=== PATIENT | male | born 1965 | race Caucasian/White ===

== ENCOUNTER → 2019-07-30 15:00 | Outpatient (BNVA) | payer MEDICARE, MEDICAID, SELFPAY | PROVIDERS: Visit Provider Nurse Practitioner Psychiatric/Mental Health | DX: F33.1 Major depressive disorder, recurrent, moderate (principal); F43.12 Post-traumatic stress disorder, chronic; S06.9X9A Unspecified intracranial injury with loss of consciousness of unspecified duration, initial encounter; Z79.899 Other long term (current) drug therapy | CPT/HCPCS: 80307; 99214 ==

== ENCOUNTER → 2020-03-03 08:07 | Outpatient (BNVA) | payer MEDICARE, MEDICAID, SELFPAY | PROVIDERS: Visit Provider Nurse Practitioner Psychiatric/Mental Health | DX: F33.1 Major depressive disorder, recurrent, moderate (principal); F43.12 Post-traumatic stress disorder, chronic; S06.9X9A Unspecified intracranial injury with loss of consciousness of unspecified duration, initial encounter | CPT/HCPCS: 99213 ==

== ENCOUNTER → 2020-03-27 10:26 | Outpatient (BNVA) | payer MEDICARE, MEDICAID, SELFPAY | PROVIDERS: Visit Provider Nurse Practitioner Psychiatric/Mental Health | DX: F43.12 Post-traumatic stress disorder, chronic (principal); F33.1 Major depressive disorder, recurrent, moderate; S06.9X9A Unspecified intracranial injury with loss of consciousness of unspecified duration, initial encounter; F41.1 Generalized anxiety disorder; Z79.899 Other long term (current) drug therapy | CPT/HCPCS: 80306; 99212 ==

== ENCOUNTER → 2020-04-23 13:26 | Outpatient (BNVA) | payer MEDICARE, MEDICAID, SELFPAY | PROVIDERS: Visit Provider Specialist | DX: M25.561 Pain in right knee (principal); M17.11 Unilateral primary osteoarthritis, right knee; M85.861 Other specified disorders of bone density and structure, right lower leg | CPT/HCPCS: 73560; 73565 ==

== ENCOUNTER → 2020-04-24 08:42 | Outpatient (BNVA) | payer MEDICARE, MEDICAID, SELFPAY | PROVIDERS: Visit Provider Nurse Practitioner Psychiatric/Mental Health | DX: F33.1 Major depressive disorder, recurrent, moderate (principal); F43.12 Post-traumatic stress disorder, chronic; S06.9X9A Unspecified intracranial injury with loss of consciousness of unspecified duration, initial encounter; F33.2 Major depressive disorder, recurrent severe without psychotic features; F41.1 Generalized anxiety disorder | CPT/HCPCS: 99212 ==

== ENCOUNTER 2020-05-08 20:00 | Outpatient (CLI) | payer MEDICARE, MEDICAID, SELFPAY | END 2020-05-08 20:01 | disposition home or self-care (01) | LOC: SLEEP 05-09 09:26 | PROVIDERS: Visit Provider Internal Medicine | DX: G47.30 Sleep apnea, unspecified (principal) | CPT/HCPCS: 95811 ==

== ENCOUNTER → 2020-05-22 08:13 | Outpatient (BNVA) | payer MEDICARE, MEDICAID, SELFPAY | PROVIDERS: Visit Provider Nurse Practitioner Psychiatric/Mental Health | DX: F33.1 Major depressive disorder, recurrent, moderate (principal); F43.12 Post-traumatic stress disorder, chronic; S06.9X9A Unspecified intracranial injury with loss of consciousness of unspecified duration, initial encounter | CPT/HCPCS: 99212 ==

== ENCOUNTER → 2020-06-16 08:45 | Outpatient (BNVA) | payer MEDICARE, MEDICAID, SELFPAY | PROVIDERS: Visit Provider Nurse Practitioner Psychiatric/Mental Health | DX: F43.12 Post-traumatic stress disorder, chronic (principal); F32.2 Major depressive disorder, single episode, severe without psychotic features; S06.9X9A Unspecified intracranial injury with loss of consciousness of unspecified duration, initial encounter | CPT/HCPCS: 99212 ==

== ENCOUNTER 2020-06-16 14:41 | Inpatient (IN) | payer MEDICARE, MEDICAID, SELFPAY ==
[2020-06-16 14:50] VITALS: BP 165/95; PULSE 121; RESP 22; TEMP 36.4; O2SAT 96; BMI 26.1
--- NOTE | 2020-06-16 15:04 | ED_ITS ---
HPI - Psych General: Chief Complaint: Psychiatric Symptoms Stated Complaint: SUICIDAL/ SENT FROM [facility] Time Seen by Provider: 06/16/20 14:50 Source: patient Mode of arrival: ambulatory Limitations: no limitations History of Present Illness: HPI Narrative: Kian 54-year-old male states been having increased depression and feeling worthless. He states he was recently addicted and has been having suicidal thoughts. He states that he told them that [facility] today that he want to kill himself [place] here. He states he has a plan to kill himself by overdosing. He denies any worsening or improving factors. complaint: suicidal ideation and feels depressed Onset (ago): day(s) Duration: constant History of same: Yes Relieving factors: none Exacerbating factors: none Associated symptoms: Reports depression and suicidal ideation Review of Systems Const: Denies: fever(s), chills, body aches or change in appetite Eyes: Denies: blurry vision or eye discomfort ENMT: Denies: throat pain or dental pain Card: Denies: chest pain Resp: Denies: dyspnea GI: Denies: abdominal pain, nausea, vomiting or diarrhea : Denies: dysuria Musc: Denies: neck pain or back pain Skin/Breast: Denies: rash Neuro: Denies: headache(s) Psych: Reports: depression and suicidal ideation Cam/Lymph: Denies: easy bruising All/Imm: Denies: urticaria PFSH ED PFSH: Social History Smoking and tobacco status: current every day smoker cigarettes Years cigarettes smoked: 36 Quit status (tobacco): considering quitting Second hand smoke exposure: Yes Physical Exam Const: COMMON NORMALS: no acute distress, patient oriented x3 and healthy appearing HENMT: COMMON NORMALS: normocephalic and atraumatic HEAD & SCALP: normocephalic and atraumatic Eye: COMMON NORMALS: Equal, round and reactive pupils present and EOMs intact bilaterally PUPIL: Yes Equal, round and reactive pupils present Neck/C-Spine: COMMON NORMALS: full ROM and supple Chest: COMMONS NORMALS: normal inspection of the chest and normal palpation of entire chest wall Resp: COMMON NORMALS: normal respiratory effort, No retractions, No use of accessory muscles and clear to auscultation bilaterally AUSCULTATION: clear to auscultation bilaterally Cardio: COMMON NORMALS: regular rate, regular rhythm and No murmurs present (Cardio) RATE: regular rate RHYTHM: regular rhythm GI: COMMON NORMALS: Normal to inspection, nondistended, normoactive bowel sounds present, Soft to palpation, non-tender and no masses PALPATION: Yes Soft to palpation Extremity: COMMON NORMALS: normal to inspection and full ROM Neuro: COMMON NORMALS: patient oriented x3, moves all extremities and no focal motor deficits Psych: COMMON NORMALS: mental status grossly normal, Normal thought process present and cooperative MOOD & AFFECT: Yes depressed mood THOUGHT PROCESS: Normal thought process present THOUGHT CONTENT: Yes Suicidality present Skin: COMMON NORMALS: no rashes or lesions noted and no wounds GENERAL SKIN EXAM: no rashes or lesions noted MDM - Psych MDM Narrative: Medical decision making narrative: Kian presents here with suicidal ideations. Patient placed under 96-hour hold. He is medically cleared and I spoke to Dr. Olsen and will admit the psychiatric unit. He has been stable while here. Lab Data: Labs: Lab Results 06/16/20 06/16/20 Range/Units 15:12 15:12 WBC 8.8 (4.0-10.0) 10^3/ uL RBC 5.18 (4.1-5.3) 10^6/u L Hgb 17.4 H (11.7-16.6) g/dL Hct 49.4 (42.0-52.0) % MCV 95.4 H (80-94) fL MCH 33.6 (28.0-34.0) pg MCHC 35.2 (30.0-36.0) g/dL RDW 13.1 (12.1-15.1) % Plt Count 174 (130-400) 10^3/c mm MPV 10.3 (7.4-10.4) fL Neut % (Auto) 64.6 % Lymph % (Auto) 22.0 % Evangeline % (Auto) 11.4 % Eos % (Auto) 1.4 % Baso % (Auto) 0.3 % Neut # (Auto) 5.66 (1.8-7.7) 10^3/u L Lymph # (Auto) 1.9 (0.8-4.8) 10^3/u L Evangeline # (Auto) 1.0 H (0.2-0.9) 10^3/u L Eos # (Auto) 0.1 (0.0-0.8) 10^3/u L Baso # (Auto) 0.0 (0.0-0.1) 10^3/u L Nucleated RBC % (a uto) 0 % Nucleated RBCs # 0.0 /100WBC Sodium 133 L (136-145) mmol/L Potassium 3.7 (3.5-5.1) mmol/L Chloride 95 L (98-107) mmol/L Carbon Dioxide 21 L (22-29) mmol/L Anion Gap 20.7 H (5-19) BUN 9 (6-20) mg/dL Creatinine 0.9 (0.7-1.2) mg/dL GFR Calculation 88.6 L (90-130) mL/min Glucose 162 H (65-115) mg/dL Calculated Osmolal ity 278 L (285-295) mOsm/k g Calcium 10.0 (8.5-10.5) mg/dL Total Bilirubin 0.8 (0.15-1.2) mg/dL AST 32 (0-40) U/L ALT 37 (0-41) U/L Alkaline Phosphata se 93 (40-130) IU/L Total Protein 7.6 (6.6-8.7) g/dL Albumin 4.4 (3.5-5.2) g/dL Globulin 3.2 (1.3-4.6) g/dL Salicylates < 0.3 L (3-10) mg/dL Acetaminophen < 5.0 L (10-30) ug/mL Ethyl Alcohol < 10 (0-10) mg/dL Discharge Plan Discharge Patient Disposition: Admitted As Inpatient Clinical Impression: Suicidal ideation Condition: Stable Coding Level of Care Code ED Project Superintendent for Joellen Fwd Exam Comprehensive
[2020-06-16 15:19] LABS: Basophils % 0.3 %; Eosinophils # 0.1 10^3/uL (0.0-0.8); Eosinophils % 1.4 %; Hematocrit 49.4 % (42.0-52.0); Hemoglobin 17.4 g/dL (11.7-16.6); Lymphocytes # 1.9 10^3/uL (0.8-4.8); Mean Corpuscular HGB Conc 35.2 g/dL (30.0-36.0); Mean Corpuscular Hemoglobin 33.6 pg (28.0-34.0); Mean Corpuscular Volume 95.4 fL (80-94); Mean Platelet Volume 10.3 fL (7.4-10.4); Monocytes % 11.4 %; Neutrophils # 5.66 10^3/uL (1.8-7.7); Neutrophils % 64.6 %; Nucleated Red Blood Cells % 0 %; Platelet Count 174 10^3/cmm (130-400); Red Blood Count 5.18 10^6/uL (4.1-5.3); Red Cell Distribution Width 13.1 % (12.1-15.1); White Blood Count 8.8 10^3/uL (4.0-10.0)
[2020-06-16 15:45] LABS: Alanine Aminotransferase 37 U/L (0-41); Albumin Level 4.4 g/dL (3.5-5.2); Alkaline Phosphatase 93 IU/L (40-130); Anion Gap 20.7 (5-19); Aspartate Amino Transferase 32 U/L (0-40); Blood Urea Nitrogen 9 mg/dL (6-20); Carbon Dioxide 21 mmol/L (22-29); Chloride 95 mmol/L (98-107); Globulin 3.2 g/dL (1.3-4.6); Glomerular Filtration Rate 88.6 mL/min (90-130); Glucose 162 mg/dL (65-115); Osmolality Calculated 278 mOsm/kg (285-295); Potassium 3.7 mmol/L (3.5-5.1); Sodium 133 mmol/L (136-145); Total Bilirubin 0.8 mg/dL (0.15-1.2); Total Protein 7.6 g/dL (6.6-8.7)
[2020-06-16] MEDS: LORazepam 2 mg Tablet PO (15:49)
[2020-06-16 15:50] LABS: Acetaminophen < 5.0 ug/mL (10-30); Alcohol Level < 10 mg/dL (0-10); Salicylate < 0.3 mg/dL (3-10)
[2020-06-16 16:12] LABS: Amphetamines Screen Urine Negative (Negative); Barbiturates Screen Urine Negative (Negative); Benzodiazepines Screen Urine Positive (Negative); Cocaine Screen Urine Negative (Negative); Opiate Screen Urine Negative (Negative); PCP Screen Urine Negative (Negative); THC Screen Urine Negative (Negative)
[2020-06-16 18:01] VITALS: BP 154/109; PULSE 109; RESP 18; TEMP 36.8; O2SAT 98
[2020-06-16] MEDS: nicotine 21 mg Patch 1 PATCH TRANSDERMA (18:14)
[2020-06-16] MEDS: diazePAM 5 mg Tablet PO (20:27)
[2020-06-16] MEDS: trazodone 50 mg Tablet PO (20:27)
[2020-06-16] MEDS: acetaminophen 325 mg Tablet 650 MG PO (20:32)
[2020-06-16 20:46] VITALS: PULSE 114; RESP 16; O2SAT 99
[2020-06-16] MEDS: pantoprazole DR 40 mg Tablet PO (21:00)
[2020-06-16 21:28] VITALS: BP 133/93; PULSE 118; RESP 16; TEMP 36.3; O2SAT 98
--- NOTE | 2020-06-16 21:42 | PC.NURSE ---
AT NURSES STATION, WAITING ON MEDS, TALKATIVE, SAYS BACK HAS BEEN HURTING, TOOK TYLENOL FOR PAIN.
[2020-06-16] MEDS: lamoTRIgine 25 mg Tablet 50 MG PO (21:53)
--- NOTE | 2020-06-17 00:21 | PC.NURSE ---
NICOTINE PATCH REMOVED AT 2100
--- NOTE | 2020-06-17 00:22 | PC.NURSE ---
PRNS @2026 PT RECEIVED 650MG PO TYLENOL FOR BACK PAIN RATED A 6 ON 1-10 PAIN SCALE tRAZODONE 50MG PO FOR SLEEP VALIUM 5MG PO FOR ANXIETY @2099 PT IS RESTING IN HIS ROOM WITHOUT ANY VISIBLE S/S DISTRESS. pT REPORTS DECREASE IN PAIN LEVEL TO A 3 FROM 6. wILL CONTINUE TO MONITOR THIS PATIENT.
[2020-06-17 06:00] VITALS: BP 108/76; PULSE 71; RESP 14; TEMP 36.3; O2SAT 95
--- NOTE | 2020-06-17 07:56 | PC.NURSE ---
pt offered Flu vaccine, pt stated he already received it this year.
[2020-06-17] MEDS: lisinopril 20 mg Tablet PO (08:17)
[2020-06-17] MEDS: fluticasone nasal spray 16gm Btl 2 SPRAY INTRANASAL ×2 (08:17→21:59)
[2020-06-17 09:20] VITALS: PULSE 71; RESP 16; O2SAT 95
[2020-06-17] MEDS: nicotine 21 mg Patch 1 PATCH TRANSDERMA (11:08)
[2020-06-17] MEDS: diazePAM 5 mg Tablet PO ×2 (12:44→20:22)
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
[2020-06-17 14:00] VITALS: BP 145/103; PULSE 96; RESP 18; TEMP 36.8; O2SAT 95
[2020-06-17] MEDS: atorvastatin 40 mg Tablet 80 MG PO (15:59)
[2020-06-17] MEDS: acetaminophen 325 mg Tablet 650 MG PO ×2 (15:59→20:22)
[2020-06-17] MEDS: pneumococcal (23 valent) SDV 0.5 mL IM (20:25)
--- NOTE | 2020-06-17 20:35 | PC.NURSE ---
TYLENOL PAIN RATED 6 ON 1-10 WILL CONTINUE TO MONITOR
--- NOTE | 2020-06-17 20:35 | PC.NURSE ---
FLU VACCINATION fLUVAX GIVEN IM LEFT DELTOID MUSCLE LOT [id number] EXP 12/31/20
[2020-06-17 20:36] VITALS: BP 128/81; PULSE 87; RESP 18; TEMP 36.6; O2SAT 93
--- NOTE | 2020-06-17 20:37 | PC.NURSE ---
pNEUMONIA VACCINATION PNEUMOVAX GIVEN RIGHT DELTOID IM EXP 04/05/2021 LOT #[id number]
[2020-06-17 21:58] VITALS: PULSE 94; RESP 16; O2SAT 98
[2020-06-17] MEDS: pantoprazole DR 40 mg Tablet PO (21:59)
[2020-06-17] MEDS: lamoTRIgine 25 mg Tablet 50 MG PO (21:59)
[2020-06-17] MEDS: trazodone 50 mg Tablet PO (21:59)
[2020-06-17] MEDS: nicotine 2 mg Gum BUCCAL (21:59)
[2020-06-18 06:00] VITALS: BP 125/90; PULSE 99; RESP 18; TEMP 36.8; O2SAT 98
[2020-06-18] MEDS: nicotine 21 mg Patch 1 PATCH TRANSDERMA (06:00)
[2020-06-18 07:37] VITALS: PULSE 90; RESP 16; O2SAT 97
[2020-06-18] MEDS: lisinopril 20 mg Tablet PO (09:07)
[2020-06-18] MEDS: fluticasone nasal spray 16gm Btl 2 SPRAY INTRANASAL (09:07)
[2020-06-18] MEDS: diazePAM 5 mg Tablet PO (10:45)
--- NOTE | 2020-06-18 10:45 | PC.NURSE ---
PRN VALIUM 5 MG GIVEN PO PER PT C/O ANXIETY. PT UP AT NURSES STATION, LAUGHING WITH STAFF. NO OUTWARD S/S OF ANXIETY NOTED.
[2020-06-18 11:49] VITALS: PULSE 90; RESP 16; O2SAT 97
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
--- NOTE | 2020-06-18 16:42 | PC.RESP ---
Smoking Cessation information sent to patient.
== END 2020-06-18 13:22 | disposition home or self-care (01) | DRG 885 ==
LOC: ER 15:10 → NP 06-17 06:18
PROVIDERS: Admitting Provider Psychiatry & Neurology Psychiatry; Emergency Provider Emergency Medicine; PCP Internal Medicine; Visit Provider Psychiatry & Neurology Psychiatry
DX: F33.1 Major depressive disorder, recurrent, moderate (principal); R45.851 Suicidal ideations; F43.12 Post-traumatic stress disorder, chronic; Z87.820 Personal history of traumatic brain injury; F17.210 Nicotine dependence, cigarettes, uncomplicated; J44.9 Chronic obstructive pulmonary disease, unspecified; I10 Essential (primary) hypertension
CPT/HCPCS: 12345; 80053; 80306; 80307; 85025; 90471; 90686; 90732; 94640; 99212; 99284

== ENCOUNTER → 2020-07-01 07:57 | Outpatient (BNVA) | payer MEDICARE, MEDICAID, SELFPAY | PROVIDERS: PCP Internal Medicine; Visit Provider Nurse Practitioner Psychiatric/Mental Health | DX: F43.12 Post-traumatic stress disorder, chronic (principal); S06.9X9A Unspecified intracranial injury with loss of consciousness of unspecified duration, initial encounter; F32.2 Major depressive disorder, single episode, severe without psychotic features; F17.200 Nicotine dependence, unspecified, uncomplicated; F33.1 Major depressive disorder, recurrent, moderate | CPT/HCPCS: 99213 ==

== ENCOUNTER → 2020-07-03 11:14 | Outpatient (BNVA) | payer OTHER, SELFPAY | PROVIDERS: PCP Internal Medicine; Visit Provider Nurse Practitioner Psychiatric/Mental Health | DX: F43.12 Post-traumatic stress disorder, chronic (principal) | CPT/HCPCS: 80061; 83036 ==

== ENCOUNTER → 2020-07-29 10:00 | Outpatient (BNVA) | payer MEDICARE, MEDICAID, SELFPAY | PROVIDERS: PCP Internal Medicine; Visit Provider Nurse Practitioner Psychiatric/Mental Health | DX: F43.12 Post-traumatic stress disorder, chronic (principal); F32.2 Major depressive disorder, single episode, severe without psychotic features; F33.1 Major depressive disorder, recurrent, moderate; F17.200 Nicotine dependence, unspecified, uncomplicated; S06.9X9A Unspecified intracranial injury with loss of consciousness of unspecified duration, initial encounter | CPT/HCPCS: 80061; 99214 ==

== ENCOUNTER → 2020-08-05 09:15 | Outpatient (BNVA) | payer MEDICARE, MEDICAID, SELFPAY ==
[2020-07-31 13:19] VITALS: BP 138/103; BMI 25.4
== END ==
PROVIDERS: PCP Internal Medicine; Visit Provider Orthopaedic Surgery
DX: M54.9 Dorsalgia, unspecified (principal); S22.31XD Fracture of one rib, right side, subsequent encounter for fracture with routine healing; X58.XXXD Exposure to other specified factors, subsequent encounter
CPT/HCPCS: 72114

== ENCOUNTER 2020-08-28 17:09 | Outpatient (CLI) | payer MEDICARE, MEDICAID, SELFPAY ==
[2020-07-31 13:19] VITALS: BP 138/103; BMI 25.4
--- NOTE | 2020-08-28 17:55 | MR_ITS ---
WS: [id number] MRI LUMBAR SPINE NONCONTRAST TECHNIQUE: Sagittal T1, T2 and STIR imaging. Axial T1 and T2 imaging. CLINICAL INFORMATION: M48.062 - Spinal stenosis, lumbar region with neurogenic claudication COMPARISON: None. FINDINGS: Prior postoperative changes in the cervical spine with anterior cervical fusion C5-6. Mild disc bulgi ng C3-C4 and C4-C5. Slight retrolisthesis C3 on C4. This is seen on the manager business planning imaging. Mild lumbar curve. No acute compression. No high-grade central canal stenosis. Prior left hemilaminec fer L4-5. L1-L2: No significant disc bulging. Mild facet arthropathy. Spinal canal and foramen are patent. L2-L3: Mild annular bulging with slight effacement of ventral thecal sac. Narrowing of the subarticul ar recess bilaterally. Moderate facet arthropathy. Mild left foraminal narrowing. L3-L4: Mild annular bulging with osteophytic ridging. Moderate facet arthropathy. Slight narrowing of the subarticular recess bilaterally. Mild left foraminal narrowing. L4-L5: Mild disc bulging in combination with moderate facet arthropathy results in mild residual cent ral canal stenosis. Slight impingement traversing L5 nerve roots bilaterally. Moderate left foraminal narrowing with contact of the exiting left L4 nerve root is progressed from previous. L5-S1: No significant disc bulging. Moderate facet arthropathy. Spinal canal and foramen are patent. Visualized pelvic bony structures: Normal. Paravertebral soft tissues: Normal. MR/MR lumbar spine wo con* [id number] IMPRESSION: 1. Mild lumbar curve. No acute compression. No high-grade central canal stenos is. 2. Mild residual central canal stenosis L4-5 due to disc bulging with moderate facet arthropathy. Slight impingement traversing L5 nerve roots bilaterally. T his is stable since 2018. 3. Mild to moderate left L4-5 foraminal narrowing with contact of the exiting left L4 nerve root. Recommend correlation left L4 nerve root symptoms. This is progressed since 2018. 4. Mild left L2-3 and L3-4 foraminal narrowing. 5. Moderate facet arthropathy L3-L4 and L4-L5. 6. Evidence of prior hemilaminectomy L4-5. Previously described small seroma h as resolved.
== END 2020-08-28 17:10 | disposition home or self-care (01) ==
LOC: RADSHAW 17:16
PROVIDERS: PCP Internal Medicine; Visit Provider Orthopaedic Surgery
DX: M48.062 Spinal stenosis, lumbar region with neurogenic claudication (principal); M96.1 Postlaminectomy syndrome, not elsewhere classified; M47.816 Spondylosis without myelopathy or radiculopathy, lumbar region; M48.061 Spinal stenosis, lumbar region without neurogenic claudication
CPT/HCPCS: 72148

== ENCOUNTER → 2020-09-25 12:45 | Outpatient (BNVA) | payer MEDICARE, MEDICAID, SELFPAY ==
[2020-07-31 13:19] VITALS: BP 138/103; BMI 25.4
== END ==
PROVIDERS: PCP Internal Medicine; Visit Provider Orthopaedic Surgery
DX: M48.062 Spinal stenosis, lumbar region with neurogenic claudication (principal); Z20.822 Contact with and (suspected) exposure to COVID-19
CPT/HCPCS: 87635

== ENCOUNTER 2020-09-29 08:19 | Day surgery (SDC) | payer MEDICARE, MEDICAID, SELFPAY ==
[2020-07-31 13:19] VITALS: BP 138/103; BMI 25.4
[2020-09-26 12:59] VITALS: BMI 23.2
[2020-09-29 08:41] VITALS: BP 158/110; PULSE 78; RESP 18; TEMP 36.2; O2SAT 97
[2020-09-29] MEDS: sodium chloride 0.9% 1,000 ML 30 ML IV (08:55)
--- NOTE | 2020-09-29 09:16 | ANES.PREANE2 ---
Pre-Anesthetic Assessment Pre-Anesthetic Assessment: Height/Weight: Height 1.78 m Weight 73.482 kg Temp Pulse Resp BP Pulse Ox 97.1 F L 78 18 158/110 97 09/29/20 08:41 09/29/20 08:41 09/29/20 08:41 09/29/20 08:41 09/29/20 08:41 Preop Diagnosis: lumbar stenosis with radiculopathy Proposed Procedure: Operation Date: 09/29/20 09:55 Proposed Procedures p Right L4-L5 L5-S1 Revision [id number] M48.062(Right) - Ayush Peterson DO Familial anesthetic complications: None Was Beta Papa taken within 24 hours: N/A Was Clonidine taken within 24 hours: N/A Last intake: Intake Last Liquid Date 09/28/20 Last Liquid Time 23:00 Last Solid Date 09/28/20 Last Solid Time 23:00 Social: Social History: Tobacco and No alcohol Exam: Pre-Anes Outpt Exam: alert, oriented x 3, clear to auscultation bilaterally and regular rate & rhythm Airway: Cervical ROM: WNL MP: 4 Dentition: Chipped Pulmonary: Pulmonary: COPD CV/HEM: CV/HEM: HTN GI: GI: GERD Metabolic: Metabolic: Hyperlipidemia and Morbid obesity Anesthetic Plan: ASA status: 2 Anesthesia: General Risk of > 500 ml blood loss (7ml/kg in children): No PFSH Anesthesia PFSH: Medical History Nicotine dependence Hasn't smoked in 1 and 1/2 days. Family History Mother Cancer Social History Smoking and tobacco status: current every day smoker cigarettes Years cigarettes smoked: 36 Quit status (tobacco): considering quitting Second hand smoke exposure: Yes Alcohol intake: former Current gender identity: Male Data Anesthesia Cardiac Studies: No Data to Display
[2020-09-29] MEDS: midazolam 1 mg/mL INJ 2 mL 2 MG IVP (10:01)
--- NOTE | 2020-09-29 10:28 | W.PM.OPSUD ---
Surgery/Procedure H&P Update DATE OF PROCEDURE: September 29, 2020 DATE H&P PERFORMED: 09/02/20 H&P UPDATE INFORMATION: I have reviewed H&P completed within last 30 days, I have examined patient prior to procedure and No changes to prior documentation PREOP DIAGNOSIS: lumbar stenosis with radiculopathy PLANNED PROCEDURE: Operation Date: 09/29/20 09:55 Proposed Procedures p Right L4-L5 L5-S1 Revision [id number] M48.062(Right) - Ayush Peterson DO
[2020-09-29 10:32] LABS: Glucose Point of Care 134 mg/dL (70-110)
--- NOTE | 2020-09-29 12:02 | SUR.PREOP ---
1154 Pt surgery cancelled due to microscope not working at this time. Pt off unit via wheelchair to be taken home by ready transport. Pt verbalized understanding that procedure will be rescheduled.
== END 2020-09-29 13:00 | disposition home or self-care (01) ==
LOC: OR 10-02 10:09
PROVIDERS: PCP Internal Medicine; Visit Provider Orthopaedic Surgery
DX: M48.061 Spinal stenosis, lumbar region without neurogenic claudication (principal); Z53.9 Procedure and treatment not carried out, unspecified reason; J44.9 Chronic obstructive pulmonary disease, unspecified; I10 Essential (primary) hypertension; K21.9 Gastro-esophageal reflux disease without esophagitis; E78.5 Hyperlipidemia, unspecified; E66.01 Morbid (severe) obesity due to excess calories; Z68.23 Body mass index [BMI] 23.0-23.9, adult; F17.210 Nicotine dependence, cigarettes, uncomplicated
CPT/HCPCS: 36416; 82962; 96374; J2250; J3010; J3490; J7030

== ENCOUNTER 2020-10-03 05:37 | Day surgery (SDC) | payer MEDICARE, MEDICAID, SELFPAY ==
[2020-07-31 13:19] VITALS: BP 138/103; BMI 25.4
[2020-10-02 10:48] VITALS: BMI 23.2
[2020-10-03] VITALS (8 sets, daily range): BP systolic 113–169; BP diastolic 79–111; PULSE 82–108; RESP 13–20; TEMP 36.4–36.7; O2SAT 94–98
--- NOTE | 2020-10-03 | SCC_ITS ---
Procedure Done: 1. Right revision L4/5 laminectomy, partial facetectomy 2. Right revison L5/S1 laminectomy, partial facetectomy 16.4 seconds of fluoroscopic guidance, for a cumulative dose of 5.79 mGy, was provided to Dr. Peterson by the radiology department. C-arm images of the lumbar spine were saved for the patient's permanent record. [facility]
--- NOTE | 2020-10-03 | XR_ITS ---
WS: [id number] Lumbar spine, C-arm fluoroscopy view of the L5 vertebral body, 10/03/2020 Clinical Data: spinal stenosis lumbar region Comparison: Lumbar spine, 08/05/2020. Findings: Visualization of the L5 vertebral body is accomplished XR/XR lumbar spine 1V port [id number] Impression: Visualization of the L5 vertebral body.
[2020-10-03] MEDS: sodium chloride 0.9% 1,000 ML 30 ML IV (06:15)
[2020-10-03 06:19] LABS: Glucose Point of Care 124 mg/dL (70-110)
--- NOTE | 2020-10-03 06:41 | PM.HP ---
Providers/Chief Complaint Primary Care Provider: Siena Silva DO Chief Complaint: Spinal stenosis lumbar region History of Present Illness Kian Morris is a 55 year old male here for evaluation of low back pain and to discuss his MRI results. He states he experiences sudden sharp pain as well as sudden weakness to his lower extremities. He states he has experienced multiple falls over the last two months related to his weakness and pain. The pain and weakness have decreased his ability to preform activates of daily living. Chief Complaint: low back pain Onset: years worse the past 2 months Duration: months Characteristics: sharp, pressure Severity: 610 Location: low back Radiating symptoms: buttocks, right lateral leg and into toes Aggravating factors: standing, bending forward alleviating factors: stretches, rest Neuro deficits: denies incontinence of bowel/bladder, saddle anesthesia. Prior tx: Left L4-L5 laminotomy/foraminotomy, with resection of intraspinal, epidural mass preformed by Dr. Foley 12/08/17. injections with pain management lasting 3 days Associated symptoms: Denies abdominal pain, chills, fever(s), nausea or vomiting Review of Systems Narrative: Denies: fever(s) or chills Card: Denies: chest pain or dyspnea on exertion Resp: Denies: dyspnea, productive cough or wheezing GI: Denies: abdominal pain, nausea or vomiting Musc: Reports: joint pain, joint swelling and limited range of motion Skin/Breast: Denies: changes in skin color or dry skin Neuro: Denies: numbness in extremities or weakness in extremities Psych: Denies: anxiety Cam/Lymph: Denies: easy bruising or easy bleeding Medications/Allergies Home Medications Medication Instructions Recorded Confirmed Last Taken Type budesonide-formoterol HFA 80 2 puff INHALATION BID@07/30/19 10/03/20 10/03/20 History mcg-4.5 mcg/actuation aerosol inhaler fluticasone propionate 50 2 spray INTRANASAL BID@ ml 07/30/19 10/03/20 10/02/20 History mcg/actuation nasal spray,suspension lisinopril 20 mg tablet 20 mg PO DAILY@09 tab 07/30/19 10/03/20 10/02/20 History omeprazole 20 mg capsule,delayed 20 mg PO BID@ PRN 07/30/19 10/03/20 10/01/20 History release atorvastatin 40 mg tablet 80 mg PO DAILY@17 tab 04/22/20 10/03/20 10/03/20 History albuterol sulfate 90 mcg/actuation 2 puff INHALATION Q6H PRN 07/03/20 10/03/20 09/26/20 History aerosol inhaler fluoxetine 40 mg capsule 40 mg PO QAM #30 cap 07/29/20 10/03/20 10/02/20 Rx lamotrigine 100 mg tablet 100 mg PO .qhs #30 tab 07/29/20 10/03/20 10/02/20 Rx trazodone 100 mg tablet 50 mg PO DAILY PRN #15 tab 07/29/20 10/03/20 10/01/20 Rx metformin 1,000 mg tablet 1,000 mg PO BID 08/05/20 10/03/20 10/02/20 History diazepam 5 mg tablet 5 mg PO TID PRN #90 tab 08/26/20 10/03/20 10/02/20 Rx DME rolling walker #1 ea 09/16/20 09/16/20 Unknown Rx DME shower chair #1 ea 09/16/20 09/16/20 Unknown Rx Allergies Allergy/AdvReac Type Severity Reaction Status Date / Time No Known Allergies Allergy Verified 10/03/20 06:02 PFSH Acute PFSH: Medical History Nicotine dependence Hasn't smoked in 1 and 1/2 days. Family History Mother Cancer Social History Smoking and tobacco status: current every day smoker cigarettes Years cigarettes smoked: 36 Quit status (tobacco): considering quitting Second hand smoke exposure: Yes Alcohol intake: former Current gender identity: Male Vitals/I&O/Wt Last Vital Signs Temp 98.1 F 10/03/20 06:03 Pulse 82 10/03/20 06:03 Resp 16 10/03/20 06:03 BP 117/93 10/03/20 06:03 Pulse Ox 97 10/03/20 06:03 Weight last 48 hrs Weight 162 lb Physical Exam Narrative: EXAM NARRATIVE: EXAM NARRATIVE: CONSTITUTIONAL: The patient is normal appearing, well groomed, cooperative and in no apparent distress. GENERAL: Patient in no acute distress. Well nourished. CARDIAC: Regular rate and rhythm. CHEST: Normal inspiratory effort, normal respiratory rate. ABDOMEN: Soft and non-tender. SKIN: Clear, warm and intact. NEURO?PSYCH: The patient is alert and oriented to person, place and time. NEUROVASCULAR: Upper Extremity Sensory - SILT. Motor Strength: Shoulder abduction C5: 5/5; Wrist extension C6: 5/5; Elbow extension C7: 5/5; Hand [employer] C8: 5/5; Finger abduction T1: 5/5. Radial/ Ulnar/ Median in intact Lower Extremity Sensory - SILT. Motor Strength: Hip flexion L2/3; Ant/inner thigh: 5/5; Hip adduction L2/3: 5/5; Knee extension L4 Lat thigh: 5/5; Toe dorsiflexion L5: 5/5; Ankle dorsiflexion L5/ S1: 5/5; Plantar flexion S1: 5/5. DTR: Triceps 2+; Brachioradialis 2+; Patellar 2+; Achilles 2+. MUSCULOSKELETAL: UPPER EXTREMITIES: The patient had full active ROM in fingers, wrist, elbow, and shoulder. The patient demonstrated ability to fully flex/extend/abduct/adduct fingers, make ok sign, cross 2nd/3rd digits, extend 1st digit fully.. Radial pulse 2+, CR<2 seconds. LOWER EXTREMITIES: Pt has full, active ROM of toes, ankle, knee, and hip. Dorsalis pedis & posterior tibialis pulses 2+, CR<2 seconds. SPINE: Skin warm, dry, intact. A&P Assessment and plan (1) Lumbar stenosis with neurogenic claudication: failed conservative tx revision L4/5 L5 S1 on right Status: Acute Attestations Medical Necessity Statement*: progressive symptoms failed conservative tx Coding Level of Care Code Acute [employer] Technician for [facility] Diagnoses Lumbar stenosis with neurogenic claudication M48.062
--- NOTE | 2020-10-03 06:45 | W.PM.OPSUD ---
Surgery/Procedure H&P Update DATE OF PROCEDURE: October 03, 2020 DATE H&P PERFORMED: 10/03/20 H&P UPDATE INFORMATION: I have reviewed H&P completed within last 30 days, I have examined patient prior to procedure and No changes to prior documentation PREOP DIAGNOSIS: lumbar stenosis PLANNED PROCEDURE: Operation Date: 10/03/20 07:00 Proposed Procedures p Right L4/5 L5/S1 Revision [id number] M48.062(Right) - Ayush Peterson DO
--- NOTE | 2020-10-03 07:53 | P.ANESUD_ITS ---
Pre-Anesthetic Update Pre-Anesthetic Assessment: Date of Surgery/Procedure: 10/03/20 Preop Amy gnosis: lumbar stenosis Proposed Procedure: Operation Date: 10/03/20 07:00 Proposed Procedures p Right L4/5 L5/S1 Revision [id number] M48.062(Right) - Ayush Jackson Caron, DO Last Intake: Intake Last Liquid Date 10/02/20 Last Liquid Time 23:45 Last Solid Date 10/02/20 Last Solid Time 23:45 Labs Last 48hrs: Laboratory Results - last 48 hr 10/03/20 06:13 POC Glucose 124 H Vitals: Temperature 98.1 F 10/03/20 06:03 Temperature Source Temporal Artery S can 10/03/20 06:03 Pulse Rate 82 10/03/20 06:03 Respiratory Rate 16 10/03/20 06:03 Blood Pressure 117/93 10/03/20 06:03 Blood Pressure Nargis n 101 10/03/20 06:03 Pulse Oximetry 97 10/03/20 06:03 Oxygen Delivery Me thod 10/03/20 06:03 Exam: Pre-Anes Outpt Exam: alert, oriented x 3, clear to auscultation bilaterally and regular rate & rhythm Additional Exam Findings (including area of procedure): seen at 0655, no change in status from previous assessment. ASA 3 Cardiac Studies: No Data to Display
[2020-10-03] MEDS: HYDROcodone-acetaminophen 5-325 mg Tablet 1 TAB PO (09:40)
--- NOTE | 2020-10-03 10:07 | PM.OP ---
Operative Report Date of procedure: October 03, 2020 Pre-op Diagnosis: lumbar stenosis L4/5, L5S1 Post-op diagnosis: same Procedure Done: 1. Right revision L4/5 laminectomy, partial facetectomy 2. Right revison L5/S1 laminectomy, partial facetectomy Procedure: 1. Right revision L4/5 laminectomy, partial facetectomy 2. Right revison L5/S1 laminectomy, partial facetectomy Patient had previous L4-5 and L5-S1 surgery. Patient is brought to the operative suite. After undergoing anesthesia they are placed in the supine position. All areas of impingement are well padded. Patient is then prepped and draped in the normal sterile fashion. A skin incision is made over the L4-5 level. This is confirmed under c-arm guidance. A series of dilators are passed and the tubular retractor is docked on the L 4 lamina. A bovie is used to clear the soft tissue off the lamina and the L 4/5 facet joint. Scar tissue is identified to the edges of the previous laminotomy site. The cyst ligamentum flavum was taken down off the scar tissue. A high speed josselyn is then used to perform the laminectomy and take down the medial aspect of the L 4/5 facet joint. A kerrison rongeure was then used to take down the remaining lamina and smooth the edge of the laminectomy up to the point where the ligamentum flavum attaches. Attention was then brought to the medial aspect of the facet joint. The remaining medial aspect of the superior and inferior aspect of the facet joint were taken down with the kerrison from the pedicle of L4 to L 5. The facet joint had significant hypertrophy. Attention was then brought to the Ligamentum Flavum. The ligament was taken down from the lamina of L4 to L5 and out medially to the remaining facet joint. The ligament was thickened. The dura was then exposed. The dura was in good repair. The L4 nerve was then traced with a curette out the L4/5 foramen and found to be adequately decompressed. The L5 nerve was traced with a curette around the L5 pedicle. The lateral recess was opened with a kerrison helping to further decompress the L5 nerve. A skin incision is made over the L5/S1 level. This is confirmed under c-arm guidance. A series of dilators are passed and the tubular retractor is docked on the L 5 lamina. A bovie is used to clear the soft tissue off the lamina and the L 5/S1 facet joint. Scar tissue is identified to the edges of the previous laminotomy site. The cyst ligamentum flavum was taken down off the scar tissue. A high speed josselyn is then used to perform the laminectomy and take down the medial aspect of the L 5/S1 facet joint. A kerrison rongeure was then used to take down the remaining lamina and smooth the edge of the laminectomy up to the point where the ligamentum flavum attaches. Attention was then brought to the medial aspect of the facet joint. The remaining medial aspect of the superior and inferior aspect of the facet joint were taken down with the kerrison from the pedicle of L5 to S1. The facet joint had significant hypertrophy. Attention was then brought to the Ligamentum Flavum. The ligament was taken down from the lamina of L5 to S1 and out medially to the remaining facet joint. The ligament was thickened. The dura was then exposed. The dura was in good repair. The L5 nerve was then traced with a curette out the L5/S1 foramen and found to be adequately decompressed. The S1 nerve was traced with a curette around the S1 pedicle. The lateral recess was opened with a kerrison helping to further decompress the S1 nerve. Wound is then irrigated copiously with saline and surgiflo is used to stop any bleeding. The tubular retractor is removed and the wound is closed with vicryl and monocryl suture. Glue is then used to protect the wound. A sterile dressing is then placed. Patient was then placed in the supine position and transferred to the PACU in stable condition.
--- NOTE | 2020-10-03 18:00 | ANE.PACU2 ---
Inpatient post-anesthesia follow up: Airway intact: Yes Vital signs: Temperature 98 F Pulse Rate 93 Respiratory Rate 16 Blood Pressure 114/80 Pulse Oximetry 98 Oxygen Delivery Me thod Room Air Oxygen Flow Rate Fraction of Inspir ed Oxygen Hydration adequate: Yes Nausea and vomiting: No Pain level: 2 Mental status: Baseline
== END 2020-10-03 10:30 | disposition home or self-care (01) ==
PROVIDERS: PCP Internal Medicine; Visit Provider Orthopaedic Surgery
PROC: (CPT 63042; principal; 2020-10-03 07:00)
DX: M48.062 Spinal stenosis, lumbar region with neurogenic claudication (principal); F17.210 Nicotine dependence, cigarettes, uncomplicated
CPT/HCPCS: 63042; 63044; 36416; 72020; 76000; 82962; 96374; J0690; J1100; J2250; J2370; J2405; J2704; J2710; J3010; J3490; J7030

== ENCOUNTER → 2021-01-12 08:30 | Outpatient (BNVA) | payer MEDICARE, MEDICAID, SELFPAY ==
[2020-07-31 13:19] VITALS: BP 138/103; BMI 25.4
== END ==
PROVIDERS: PCP Internal Medicine; Visit Provider Psychiatry & Neurology Psychiatry
DX: F43.12 Post-traumatic stress disorder, chronic (principal); F33.1 Major depressive disorder, recurrent, moderate
CPT/HCPCS: 90792

== ENCOUNTER → 2021-01-13 11:23 | Outpatient (BNVA) | payer MEDICARE, MEDICAID, SELFPAY ==
[2020-07-31 13:19] VITALS: BP 138/103; BMI 25.4
== END ==
PROVIDERS: PCP Internal Medicine; Visit Provider Registered Nurse Neonatal Intensive Care
DX: S59.909A Unspecified injury of unspecified elbow, initial encounter (principal); X58.XXXA Exposure to other specified factors, initial encounter
CPT/HCPCS: 73080

== ENCOUNTER → 2021-02-23 08:11 | Outpatient (BNVA) | payer MEDICARE, MEDICAID, OTHER, SELFPAY ==
[2020-07-31 13:19] VITALS: BP 138/103; BMI 25.4
== END ==
PROVIDERS: PCP Internal Medicine; Visit Provider Psychiatry & Neurology Psychiatry
DX: F33.1 Major depressive disorder, recurrent, moderate (principal); F43.12 Post-traumatic stress disorder, chronic; S06.9X9A Unspecified intracranial injury with loss of consciousness of unspecified duration, initial encounter
CPT/HCPCS: 99214

== ENCOUNTER → 2021-06-30 13:10 | Outpatient (BNVA) | payer OTHER, SELFPAY ==
[2020-07-31 13:19] VITALS: BP 138/103; BMI 25.4
== END ==
PROVIDERS: PCP Internal Medicine; Visit Provider Psychiatry & Neurology Psychiatry
DX: F43.12 Post-traumatic stress disorder, chronic (principal)
CPT/HCPCS: 80061; 83036

== ENCOUNTER 2021-09-16 11:18 | Outpatient (CLI) | payer MEDICARE, SELFPAY ==
[2021-07-10 13:40] VITALS: BMI 24.8
[2021-09-16 13:18] LABS: Basophils % 0.4 %; Eosinophils # 0.1 10^3/uL (0.0-0.8); Eosinophils % 1.3 %; Hematocrit 44.8 % (42.0-52.0); Hemoglobin 15.3 g/dL (11.7-16.6); Lymphocytes # 2.3 10^3/uL (0.8-4.8); Mean Corpuscular HGB Conc 34.2 g/dL (30.0-36.0); Mean Corpuscular Hemoglobin 34.2 pg (28.0-34.0); Mean Platelet Volume 9.8 fL (7.4-10.4); Monocytes # 1.4 10^3/uL (0.2-0.9); Monocytes % 13.2 %; Neutrophils # 6.42 10^3/uL (1.8-7.7); Neutrophils % 62.5 %; Nucleated Red Blood Cells % 0 %; Red Blood Count 4.48 10^6/uL (4.1-5.3); Red Cell Distribution Width 13.3 % (12.1-15.1); White Blood Count 10.3 10^3/uL (4.0-10.0)
[2021-09-16 13:19] LABS: Platelet Count 175 10^3/cmm (130-400); Slide Review Slide Review Perform
--- NOTE | 2021-09-16 17:06 | ONC CON_ITS ---
Dr. Berrios New Patient Note Patient: Kian Morris Unit #: [id number]: [id number] Dicatated By: Rodolfo Berrios M.D.Date of Visit: Sep 16, 2021 Onc MED New Patient/Consult Referring Physician: Emmanuel Florian History of Present Illness: Mr. Kian Morris, is a 55-year-old gentleman with longstanding history of right knee injury and multiple surgeries, as per patient about 30 years ago he injured his right knee, requiring internal fixation and reconstruction, since then he has undergone 7 more surgeries and now total right knee replacement is under consideration and his preop work-up lab work done on August 24, 2021 showed platelet count 41,000, white blood count 9200, hemoglobin 15.4 hematocrit 44.3 and there was a note from lab that actual blood count may be somewhat higher than reported due to aggregation of platelets in the sample., Repeat CBC done on August 26, 2021 showed white blood count 13.2 hemoglobin 15.5 hematocrit 44.9 platelets could not be checked due to aggregation of platelets, CBC was repeated again on August 31, 2021 which showed white blood count 12.6 hemoglobin 15.5 hematocrit 43.5 platelets 47,000 again it was mentioned that sample showed aggregation of the platelets. Patient denies any nosebleed or gum bleed, denies any melena or hematochezia denies any hemoptysis or hematemesis, denies any dysuria or hematuria, denies any night sweats denies any weight loss, denies any recurrent fever denies any peripheral lymphadenopathy denies any abdominal fullness. The only complaint is right knee discomfort and uncontrolled hyperglycemia, as per patient his A1c was very high, that is why his right knee surgery was postponed and of course preop lab work-up shows thrombocytopenia was another reason. Past Medical History: Mr. Morris's medical history consists of anxiety, asthma, chronic obstructive pulmonary disease, depression, hypertension, and migraine headaches. Past Surgical History: Mr. Valdez surgical/procedural history consists of knee scope. Medications: Albuterol Sulfate HFA 1 - 2 Puff(s) (of 108 (90 base) mcg/act) Aerosol, solution Inhalation four times a day PRN, Clotrimazole (1 %) Cream Topical b.i.d., diazePAM 1 Tablet (of 10 mg) Oral b.i.d. PRN, Fluticasone Propionate 1 [place](s) (of 50 mcg/act) Suspension Nasal daily, Gabapentin 1 Tablet (of 800 mg) Oral t.i.d., Lexapro 1 Tablet (of 20 mg) Oral daily, Lisinopril 1 Tablet (of 20 mg) Oral daily, metFORMIN HCl 1 Tablet (of 1000 mg) Oral b.i.d., Omeprazole 1 Tablet Tablet Dispersable Oral daily, Repatha SureClick 140 mg (of 140 mg/mL) Subcutaneous q 2 weeks, Symbicort 2 Puff(s) (of 160-4.5 mcg/act) Aerosol Inhalation b.i.d., traZODone HCl 1 Tablet (of 100 mg) Oral at bedtime Allergies: No Known Allergies. Social History: Mr. Morris is single. He is a daily smoker who has smoked 0.5 packs/day for 38 years. He has no history of drinking. He has indicated exposure to the following products: cigarettes. Family History: Mr. Morris's mother is alive: CLL. Review Of Symptoms: Review of Systems is not available for this patient. Vital Signs: Performed on Sep 16, 2021 15:51: 5, 4, 26.32, 2.01 sq.m, 70 in, 96 %, 96 /min, 16 /min, 127/87 mm(hg), 97.6 F (LOW), and 183.4 lbs (HIGH). Performance Status: 0 - Fully active, able to carry on all predisease activities without restrictions. (ECOG) Physical Examination: ENMT - No mouth sores, no thrush, no jaundice, no cervical or axillary lymphadenopathy, Respiratory - Lungs are clear to auscultation, Cardiovascular - Regular rate and rhythm of heart, Abdomen - Soft, bowel sounds present, Extremities - No visible edema, toes surgical scar right knee with some puffiness. Lab/Imaging: Most recent lab results are not available for this patient. Impression: Isolated thrombocytopenia, probably pseudothrombocytopenia due to platelet clumping seen on peripheral blood smear, Mild but improving leukocytosis probably due to right knee inflammation. Or smoking Right knee pains/injury/multiple surgeries, now total knee replacement is under consideration Diabetes Plan: Discussed with patient regarding his labs white blood count 10.3 hemoglobin 15.3 hematocrit 44.8 platelets 175,000 with normal differential Clinically, patient doing well with no signs symptoms testing of bleeding, his repeat CBC done today shows resolution of isolated thrombocytopenia, and etiology of his thrombocytopenia was most likely due to platelet clumping, repeat CBC done today using [id number] tube to collect sample, showed resolution of pseudothrombocytopenia. Mild leukocytosis, improving, could be due to chronic right knee inflammation or smoking or uncontrolled diabetes, no signs suggestive of infection. At this point, no further work-up from hematological point of view as his repeat CBC shows normal values. Patient will follow up with his PMD or orthopedic surgeon and if repeat CBC shows thrombocytopenia, would recommend collecting sample in [id number] tubes e.g. either heparinized or citrate-containing to minimize risk of platelet clumping. We will see him on as-needed basis. Signed By: Rodolfo Berrios M.D. <<Signature on File>>
== END 2021-09-16 11:19 | disposition home or self-care (01) ==
PROVIDERS: PCP Internal Medicine; Visit Provider Internal Medicine Hematology & Oncology
DX: D69.6 Thrombocytopenia, unspecified (principal); M25.561 Pain in right knee; E11.9 Type 2 diabetes mellitus without complications; Z79.4 Long term (current) use of insulin
CPT/HCPCS: 36415; 85025; 99204

== ENCOUNTER → 2021-10-13 14:38 | Outpatient (BNVA) | payer MEDICARE, MEDICAID, SELFPAY ==
[2021-07-10 13:40] VITALS: BMI 24.8
== END ==
PROVIDERS: PCP Internal Medicine; Visit Provider Nurse Practitioner
DX: F43.12 Post-traumatic stress disorder, chronic (principal); F33.1 Major depressive disorder, recurrent, moderate; S06.9X9A Unspecified intracranial injury with loss of consciousness of unspecified duration, initial encounter
CPT/HCPCS: 99204

== ENCOUNTER → 2021-12-31 12:59 | Outpatient (BNVA) | payer MEDICARE, MEDICAID, SELFPAY ==
[2021-07-10 13:40] VITALS: BMI 24.8
== END ==
PROVIDERS: PCP Family Medicine; Visit Provider Orthopaedic Surgery
DX: M54.50 Low back pain, unspecified (principal); M54.2 Cervicalgia
CPT/HCPCS: 72040; 72100; 99214

== ENCOUNTER → 2022-02-02 11:46 | Outpatient (BNVA) | payer MEDICARE, MEDICAID, SELFPAY ==
[2021-07-10 13:40] VITALS: BMI 24.8
== END ==
PROVIDERS: PCP Family Medicine; Visit Provider Podiatrist Foot & Ankle Surgery
DX: I73.9 Peripheral vascular disease, unspecified (principal); L60.3 Nail dystrophy; B35.3 Tinea pedis; E11.21 Type 2 diabetes mellitus with diabetic nephropathy; M21.621 Bunionette of right foot; M21.622 Bunionette of left foot; M20.41 Other hammer toe(s) (acquired), right foot; M20.42 Other hammer toe(s) (acquired), left foot; B35.1 Tinea unguium
CPT/HCPCS: 11721; 99213

== ENCOUNTER → 2022-05-04 15:30 | Outpatient (BNVA) | payer MEDICARE, MEDICAID, OTHER, SELFPAY ==
[2021-07-10 13:40] VITALS: BMI 24.8
== END ==
PROVIDERS: PCP Family Medicine; Visit Provider Orthopaedic Surgery
DX: M48.062 Spinal stenosis, lumbar region with neurogenic claudication (principal)
CPT/HCPCS: 99214

== ENCOUNTER 2022-06-07 11:39 | Outpatient (CLI) | payer MEDICARE, MEDICAID, SELFPAY ==
[2021-07-10 13:40] VITALS: BMI 24.8
--- NOTE | 2022-06-07 11:45 | MR_ITS ---
WS: [id number] MRI LUMBAR SPINE NONCONTRAST TECHNIQUE: Sagittal T1, T2 and STIR imaging. Axial T1 and T2 imaging. CLINICAL INFORMATION: pain COMPARISON: MRI August 28, 2020 FINDINGS: Mild lumbar curve. No acute compression. No high-grade central canal stenosis. Postoperative changes anterior cervical fusion C5-C6. L1-L2: Normal L2-L3: Mild annular bulging. Mild central canal stenosis. Moderate facet arthropathy. Mild LEFT and n o RIGHT foraminal narrowing. L3-L4 Mild annular bulging with slight effacement of ventral thecal sac. Moderate facet arthropathy. Mild LEFT and no significant RIGHT foraminal narrowing. Mild central canal stenosis. L4-L5: Mild annular bulging with moderate central canal stenosis. Impingement traversing L5 nerve zoe ts bilaterally. Moderate facet arthropathy with small facet effusions. Prior RIGHT hemilaminectomy. M oderate LEFT and no significant RIGHT foraminal narrowing. L5-S1: Mild annular bulging. Moderate facet arthropathy. Spinal canal and foramen are patent. Visualized pelvic bony structures: Normal. Paravertebral soft tissues: Normal. MR/MR lumbar spine wo con* [id number] IMPRESSION: 1. Mild lumbar curve. No acute compression. 2. Moderate central canal stenosis L4-L5 with impingement traversing L5 nerve roots bilaterally. Slightly progressed compared to previous. Moderate to advanc ed facet arthropathy at this level. 3. Mild central canal stenosis L2-L3 and L3-L4 appears slightly progressed. Mi ld LEFT L2-L3 foraminal narrowing. 4. Moderate LEFT L4-L5 foraminal narrowing with slight impingement on the exit ing LEFT L4 nerve root. 5. Tiny LEFT foraminal protrusion L3-L4 with mild LEFT foraminal narrowing. 6. Advanced facet arthropathy L4-L5 and L5-S1.
== END 2022-06-07 11:40 | disposition home or self-care (01) ==
LOC: RAD 11:45
PROVIDERS: PCP Family Medicine; Visit Provider Orthopaedic Surgery
DX: M48.061 Spinal stenosis, lumbar region without neurogenic claudication (principal); M51.26 Other intervertebral disc displacement, lumbar region; M47.816 Spondylosis without myelopathy or radiculopathy, lumbar region; M47.817 Spondylosis without myelopathy or radiculopathy, lumbosacral region
CPT/HCPCS: 72148

== ENCOUNTER → 2022-06-08 10:11 | Outpatient (BNVA) | payer MEDICARE, MEDICAID, SELFPAY ==
[2021-07-10 13:40] VITALS: BMI 24.8
== END ==
PROVIDERS: PCP Family Medicine; Visit Provider Orthopaedic Surgery
DX: M48.062 Spinal stenosis, lumbar region with neurogenic claudication (principal)
CPT/HCPCS: 99214

== ENCOUNTER 2022-07-21 16:10 | Inpatient (IN) | payer MEDICARE, MEDICAID, SELFPAY ==
[2021-07-10 13:40] VITALS: BMI 24.8
[2022-07-16 09:54] VITALS: BMI 24.8
--- NOTE | 2022-07-16 09:59 | ECG_ITS ---
[facility] Test Date: 2022-07-16 Pat Name: Kian Morris Department: Room: Gender: Male Technical Inspector: : 1965 Requested By: Margareth Mcdonald Order Number: [id number] Zakia MD: Elvia Mcfarland M.D. Measurements Intervals [place] Rate: 77 P: 39 ME: 140 QRS: 72 QRSD: 81 T: 70 QT: 348 QTc: 394 Interpretive Statements SINUS RHYTHM Compared to ECG 03/06/2018 19:47:39 No significant changes Electronically Signed On 07-16-2022 16:53:06 PARARESCUE MANAGER by Elvia Mcfarland M.D. [id number]
--- NOTE | 2022-07-16 10:27 | ANES.PREANE2 ---
Pre-Anesthetic Assessment Height/Weight: Height 1.78 m Weight 78.471 kg Preop Diagnosis: lumbar stenosis L4/5, L5S1 Operation Date: 07/21/22 12:15 Proposed Procedures p Spinal Fusion L3-S1 [id number]/M48.062(Not Applicable) - DO federico Haji Lumbar Spine Decompression(Not Applicable) - Ayush Peterson, DO Familial anesthetic complications: Difficult intubation - large floppy epiglottis w/ MAC 3.5, good view with glidescope, but 7.5 ETT did not pass, 7.0 tube passed with ease Social Tobacco and No alcohol Exam alert, oriented x 3, clear to auscultation bilaterally and regular rate & rhythm Airway Mallampati: Class II Dentition: chipped Pulmonary Chronic Obstructive Pulmonary Disease CV/HEM Hypertension isolated thrombocytopenia thought to be due to platelet clumping (seen on peripheral smear) GI Gastroesophageal Reflux Disease Metabolic Diabetes Mellitus and Morbid Obesity Anesthetic Plan ASA status: 3 Anesthesia: General Risk of > 500 ml blood loss (7ml/kg in children): Yes, adequate IV access and fluids planned Medications/Allergies Home Medications Medication Instructions Recorded Confirmed Last Taken Type budesonide-formoterol HFA 80 2 puff inhalation BID@07/30/19 07/16/22 07/15/22 History mcg-4.5 mcg/actuation aerosol inhaler (Symbicort) fluticasone propionate 50 2 spray intranasal BID@07/30/19 07/16/22 07/15/22 History mcg/actuation nasal spray,suspension (Flonase Allergy Relief) lisinopril 20 mg tablet 20 mg PO DAILY@07/30/19 07/16/22 07/16/22 History omeprazole 20 mg capsule,delayed 20 mg PO BID@ PRN Acid Reflux 07/30/19 07/16/22 07/16/22 History release albuterol sulfate 90 mcg/actuation 2 puff inhalation Q6H PRN short of 07/03/20 07/16/22 07/16/22 History aerosol inhaler breath metformin 1,000 mg tablet 1,000 mg PO BID 08/05/20 07/16/22 07/16/22 History evolocumab 140 mg/mL subcutaneous mg SUBCUT .every 2 weeks 10/13/21 07/13/22 Unknown History pen injector (Repatha SureClick) semaglutide 1 mg/dose (4 mg/3 mL) 0.5 mg SUBCUT .weekly 10/13/21 07/16/22 07/16/22 History subcutaneous pen injector (Ozempic) corset back brace with suspenders #1 ea 01/05/22 07/13/22 Unknown Rx sildenafil 25 mg tablet (Viagra) 25 mg PO DAILY PRN Sexual Activity 01/21/22 07/16/22 07/16/22 History terbinafine HCl 250 mg tablet 250 mg PO DAILY 90 days #30 tabs 03/03/22 07/16/22 07/16/22 Rx intraoperative neuromonitoring #1 ea 07/07/22 07/13/22 Unknown Rx diazepam 10 mg tablet 10 mg PO BID PRN anxiety 30 days 07/13/22 07/16/22 07/15/22 Rx #60 tabs escitalopram oxalate 20 mg tablet 20 mg PO DAILY 30 days #30 tabs 07/13/22 07/16/22 07/15/22 Rx (Lexapro) gabapentin 800 mg tablet 800 mg PO TID 07/13/22 07/16/22 07/16/22 History trazodone 50 mg tablet 50 mg PO .qhs 30 days #30 tabs 07/13/22 07/16/22 07/16/22 Rx Allergies Allergy/AdvReac Type Severity Reaction Status Date / Time No Known Allergies Allergy Verified 07/16/22 09:50 [facility] Anesthesia Medical History Nicotine dependence Hasn't smoked in 1 and 1/2 days. Psychiatric care Family History Mother Cancer Social History Smoking and tobacco status: current every day smoker cigarettes Packs smoked per day: 0.5 Years cigarettes smoked: 40 Quit status (tobacco): considering quitting Second hand smoke exposure: Yes Alcohol intake: former Year of sobriety/quit date alcohol: 2019 Desire information about alcohol rehabilitation?: No Adopted: No Caregiver/support person: No Lives independently: Yes Household members: none Housing: House Marital status: Single Number of children: 0 Number of grandchildren: 0 Highest education level completed: 11th Grade Current occupational status: disabled Pets and animals: No History of recent travel: Yes (to Doctor in [place]) Leisure activites: reading and other Leisure activities details: watch TV Sexually active: No Current gender identity: Male Marielena/Baptist: None Special marielena needs: No Agree to transfusion: Yes Financial difficulty paying for basics: Somewhat Hard Data Anesthesia Cardiac Studies: No Data to Display
[2022-07-16 11:00] LABS: Anion Gap 15.1 (5-19); Blood Urea Nitrogen 10 mg/dL (6-20); Calcium 8.9 mg/dL (8.5-10.5); Carbon Dioxide 27 mmol/L (22-29); Chloride 102 mmol/L (98-107); Glomerular Filtration Rate 77.9 mL/min (90-130); Glucose 142 mg/dL (65-115); Osmolality Calculated 289 mOsm/kg (285-295); Potassium 5.1 mmol/L (3.5-5.1); Sodium 139 mmol/L (136-145)
[2022-07-21] VITALS (17 sets, daily range): BP systolic 119–179; BP diastolic 86–119; PULSE 82–104; RESP 15–19; TEMP 36.3–37.1; O2SAT 92–100; BMI 24.8
[2022-07-21 10:59] LABS: Glucose Point of Care 132 mg/dL (70-110)
[2022-07-21] MEDS: sodium chloride 0.9% 1,000 ML 30 ML IV (11:04)
[2022-07-21 11:08] LABS: Basophils % 0.3 %; Eosinophils # 0.1 10^3/uL (0.0-0.8); Eosinophils % 1.4 %; Lymphocytes # 1.7 10^3/uL (0.8-4.8); Lymphocytes % 17.3 %; Mean Corpuscular HGB Conc 33.3 g/dL (30.0-36.0); Mean Corpuscular Hemoglobin 32.1 pg (28.0-34.0); Mean Corpuscular Volume 96.4 fl (80-94); Mean Platelet Volume 10.8 fL (7.4-10.4); Monocytes # 1.1 10^3/uL (0.2-0.9); Monocytes % 11.6 %; Neutrophils # 6.67 10^3/uL (1.8-7.7); Nucleated Red Blood Cells % 0 %; Platelet Count 196 10^3/cmm (130-400); Red Blood Count 4.98 10^6/uL (4.1-5.3); Red Cell Distribution Width 15.9 % (12.1-15.1); White Blood Count 9.7 10^3/uL (4.0-10.0)
[2022-07-21] MEDS: HYDROmorphone 1 mg/mL INJ 1 mL 0.5 MG IVP ×2 (11:11→16:13)
[2022-07-21 11:22] LABS: Slide Review Slide Review Perform
--- NOTE | 2022-07-21 11:44 | P.ANESUD_ITS ---
Pre-Anesthetic Update Pre-Anesthetic Assessment: Date of Surgery/Procedure: 07/21/22 Preop Amy gnosis: Degenerative disc disease lumbar spine, lumbar stenosis with neurogenic Proposed Procedure: Operation Date: 07/21/22 11:45 Proposed Procedures p Spinal Fusion L3-S1 12029/[id number]/83312/[id number]/09349/M48.062(Not Applicable) - Ayushchris Peterson, DO s Lumbar Spine Decompression(Not Applicable) - Ayush H Kristen, DO Any changes to Pre-Anesthetic Assessment?: No Last Intake: Intake Last Liquid Date 07/20/22 Last Liquid Time 20:00 Last Solid Date 07/20/22 Last Solid Time 23:30 Labs Last 48hrs: Short CBC 07/21/22 Range/Units 10:50 WBC 9.7 (4.0-10.0) 10^3/ uL Hgb 16.0 (11.7-16.6) g/dL Hct 48.0 (42.0-52.0) % MCV 96.4 H (80-94) fl Plt Count 196 (130-400) 10^3/c mm Neut % (Auto) 69.0 % Neut # (Auto) 6.67 (1.8-7.7) 10^3/u L Vitals: Temperature 97.3 F L 07/21/22 10:23 Temperature Source Temporal Artery S can 07/21/22 10:23 Pulse Rate 88 07/21/22 10:23 Respiratory Rate 16 07/21/22 11:11 Respiratory Effort 07/21/22 11:11 Respiratory Depth Normal 07/21/22 11:11 Respiratory Patter n 07/21/22 11:11 Blood Pressure 177/92 07/21/22 10:45 Blood Pressure Nargis n 120 07/21/22 10:45 Pulse Oximetry 98 07/21/22 11:11 Oxygen Delivery Me thod 07/21/22 10:23 Exam: Pre-Anes Outpt Exam: alert, oriented x 3, clear to auscultation bilaterally and regular rate & rhythm Cardiac Studies: No Data to Display
--- NOTE | 2022-07-21 11:51 | P.HP_ITS ---
Providers/Chief Complaint Primary Care Provider: Emmanuel Florian MD Chief Complaint: L3-S1 PFS W/DECOMPRESSION History of Present Illness Kian Morris is a 56 year old male ?He reports lower back pain that radiates into his left lower extremity. He reports numbness, tingling and weakness to his LLE. He reports difficulty ambu lating due the pain. Patient has a surgical history of a Right revision L4/5 laminectomy, partial facetectomy, Right revison L5/S1 laminectomy, partial facetectomy. DOS:10/03/[address] Peterson. He reports a surgical history of a previous lumbar decompression by Dr. Garza before that. Patient has a recent MRI and is here today to go over results and further treatment plan. Review of Systems General: Reports: 10 or more systems reviewed and unremarkable except in HPI and below Const: Denies: fever(s), chills or body aches Card: Denies: chest pain or orthopnea Resp: Denies: dyspnea, productive cough or wheezing GI: Denies: abdominal pain, nausea or vomiting Musc: Reports: back pain and extremity pain Skin/Breast: Denies: changes in skin color or dry skin Neuro: Reports: numbness in extremities and weakness in extremities Psych: Denies: anxiety Cam/Lymph: Denies: easy bruising or easy bleeding Medications/Allergies Home Medications Medication Instructions Recorded Confirmed Last Taken Type budesonide-formoterol HFA 80 2 puff inhalation BID@07/30/19 07/21/22 07/21/22 History mcg-4.5 mcg/actuation aerosol inhaler (Symbicort) fluticasone propionate 50 2 spray intranasal BID@07/30/19 07/21/22 07/20/22 History mcg/actuation nasal spray,suspension (Flonase Allergy Relief) lisinopril 20 mg tablet 20 mg PO DAILY@07/30/19 07/21/22 07/20/22 History omeprazole 20 mg capsule,delayed 20 mg PO BID@ PRN Acid Reflux 07/30/19 07/21/22 07/20/22 History release albuterol sulfate 90 mcg/actuation 2 puff inhalation Q6H PRN short of 07/03/20 07/16/22 07/16/22 History aerosol inhaler breath metformin 1,000 mg tablet 1,000 mg PO BID 08/05/20 07/21/22 07/20/22 History evolocumab 140 mg/mL subcutaneous 140 mg SUBCUT .every 2 weeks 10/13/21 07/21/22 07/18/22 History pen injector (Repakia Janneth) semaglutide 1 mg/dose (4 mg/3 mL) 0.5 mg SUBCUT .weekly 10/13/21 07/21/22 07/18/22 History subcutaneous pen injector (Ozempic) corset back brace with suspenders #1 ea 01/05/22 07/13/22 Unknown Rx sildenafil 25 mg tablet (Viagra) 25 mg PO DAILY PRN Sexual Activity 01/21/22 07/16/22 07/16/22 History terbinafine HCl 250 mg tablet 250 mg PO DAILY 90 days #30 tabs 03/03/22 07/21/22 07/20/22 Rx intraoperative neuromonitoring #1 ea 07/07/22 07/13/22 Unknown Rx diazepam 10 mg tablet 10 mg PO BID PRN anxiety 30 days 07/13/22 07/16/22 07/15/22 Rx #60 tabs escitalopram oxalate 20 mg tablet 20 mg PO DAILY 30 days #30 tabs 07/13/22 07/21/22 07/20/22 Rx (Lexapro) gabapentin 800 mg tablet 800 mg PO TID 07/13/22 07/21/22 07/20/22 History trazodone 50 mg tablet 50 mg PO .qhs 30 days #30 tabs 07/13/22 07/21/22 07/20/22 Rx Allergies Allergy/AdvReac Type Severity Reaction Status Date / Time No Known Allergies Allergy Verified 07/21/22 10:18 PFSH Acute PFSH: Medical History Nicotine dependence Hasn't smoked in 1 and 1/2 days. Psychiatric care Family History Mother Cancer Social History Smoking and tobacco status: current every day smoker cigarettes Packs smoked per day: 0.5 Years cigarettes smoked: 40 Quit status (tobacco): considering quitting Second hand smoke exposure: Yes Alcohol intake: former Year of sobriety/quit date alcohol: 2019 Desire information about alcohol rehabilitation?: No Adopted: No Caregiver/support person: No Lives independently: Yes Household members: none Housing: House Marital status: Single Number of children: 0 Number of grandchildren: 0 Highest education level completed: 11th Grade Current occupational status: disabled Pets and animals: No History of recent travel: Yes (to Doctor in [place]) Leisure activites: reading and other Leisure activities details: watch TV Sexually active: No Current gender identity: Male Marielena/Sabianist: None Special marielena needs: No Agree to transfusion: Yes Financial difficulty paying for basics: Somewhat Hard Vitals/I&O/Wt Last Vital Signs Temp 97.3 F L 07/21/22 10:23 Pulse 88 07/21/22 10:23 Resp 16 07/21/22 11:11 BP 177/92 07/21/22 10:45 Pulse Ox 98 07/21/22 11:11 O2 Del Method 07/21/22 10:23 Physical Exam Narrative: EXAM NARRATIVE: CONSTITUTIONAL: The patient is normal appearing, well groomed, cooperative and in no apparent distress. GENERAL: Patient in no acute distress. Well nourished. CARDIAC: Regular rate and rhythm. CHEST: Normal inspiratory effort, normal respiratory rate. ABDOMEN: Soft and non-tender. SKIN: Clear, warm and intact. NEURO?PSYCH: The patient is alert and oriented to person, place and time. NEUROVASCULAR: Upper Extremity Sensory - SILT. Motor Strength: Shoulder abduction C5: 5/5; Wrist extension C6: 5/5; Elbow extension C7: 5/5; Hand Rn Social Services C8: 5/5; Finger abduction T1: 5/5. Radial/ Ulnar/ Median in intact Lower Extremity Sensory - SILT. Motor Strength: Hip flexion L2/3; Ant/inner thigh: 5/5; Hip adduction L2/3: 5/5; Knee extension L4 Lat thigh: 5/5; Toe dorsiflexion L5: 5/5; Ankle dorsiflexion L5/ S1: 5/5; Plantar flexion S1: 5/5. DTR: Triceps 2+; Brachioradialis 2+; Patellar 2+; Achilles 2+. MUSCULOSKELETAL: UPPER EXTREMITIES: The patient had full active ROM in fingers, wrist, elbow, and shoulder. The patient demonstrated ability to fully flex/extend/abduct/adduct fingers, make ok sign, cross 2nd/3rd digits, extend 1st digit fully.. Radial pulse 2+, CR<2 seconds. LOWER EXTREMITIES: Pt has full, active ROM of toes, ankle, knee, and hip. Dorsalis pedis & posterior tibialis pulses 2+, CR<2 seconds. SPINE: Skin warm, dry, intact. Data 07/21/22 10:50 07/16/22 10:20 A&P Assessment and plan (1) Lumbar stenosis with neurogenic claudication: L3-S1 fusion Attestations Medical Necessity Statement*: failed conservtive tx Coding Level of Care Code Acute Code for g Fwd Diagnoses Lumbar stenosis with neurogenic claudication M48.062
[2022-07-21] MEDS: ceFAZolin 2,000 MG in sodium chloride 0.9% (plus) 50 ML 100 MG IV ×2 (12:11→20:56)
[2022-07-21] MEDS: heparin, porcine 1,000 unit/mL INJ 10 mL 10000 UNIT IRRIGATION (13:50)
[2022-07-21] MEDS: vancomycin 1,000 MG SDV 1000 MG XX (13:51)
--- NOTE | 2022-07-21 15:26 | XR_ITS ---
WS: [id number] XR lumbar spine 1V 09491 REASON FOR EXAM: OR PICS FINDINGS: AP view only submitted for evaluation. Posterior decompression and pedicle screws L3-S1. Interbody fusion device overlying the L5-S1 disc sp kirk. In the single view the surgical appliances appear in proper position and alignment. XR/XR lumbar spine 1V [id number] IMPRESSION: Limited imaging of the lumbar spine during surgery with no abnormality as above .
--- NOTE | 2022-07-21 15:56 | PM.OP ---
Operative Report Date of procedure: July 21, 2022 Pre-op diagnosis: Preop Diagnosis Degenerative disc disease lumbar spine, lumbar stenosis with neurogenic Post-op diagnosis: same Procedure done: 1. L5/S1 Interbody fusion with posterolateral fusion 2. Instrumentation L3-S1 3. Cage at L5/S1 4. L4/5 Laminectomy with partial facetectomy 5. L5/S1 laminectomy with partial facetectomy 6. use of computer navigation/Streotactic from spine 7. use of autograft from same incision 8. allograft 9. Bone marrow aspirate from right iliac crest Surgeon: Ayush Peterson Global Product Manager: Mitchel Day Global Product Manager: The podiatry assistant, Mitchel Day, PAC was needed for his expertise under the microscope. He was important and necessary throughout the procedure to complete in a safe and timely manner. He assisted with patient positioning prepping and draping tissue retraction suctioning of the operative field protection of the dural sac and tissue closure Estimated blood loss (mL): 250 Procedure: 1. L5/S1 Interbody fusion with posterolateral fusion 2. Instrumentation L3-S1 3. Cage at L5/S1 4. L4/5 Laminectomy with partial facetectomy 5. L5/S1 laminectomy with partial facetectomy 6. use of computer navigation/Streotactic from spine 7. use of autograft from same incision 8. allograft 9. Bone marrow aspirate from right iliac crest Patient is brought to the operative suite. After undergoing anesthesia, the patient had neuro monitoring attached. Patient was then placed in the prone position on the Francisco Javier table. All areas of impingement were well-padded. Patient was then prepped and draped in the normal sterile fashion. Skin incision was then made over the L3- S1 level. Subperiosteal dissection was made out to the transverse processes of L 3 bilaterally, L4 bilaterally, L5 bilaterally and S1 bilaterally. The [employer] bone marrow aspirate kit was used to aspirate bone marrow aspirate from the right iliac crest. This was done by using the sharp probe to open up the bone. Aspiration was performed and then the blunt probe was then used to dissect down to through the bone tunnel. An aspirating well drawn back a millimeter approximately 20 cc of bone marrow aspirate was used. And mixed with the allograft and autograft bone that will be used. Is brought to placing the fiducial for the screws to be placed navigated. 2 pins were placed in the right iliac crest. The fiducial attached to the right iliac crest pins. These pins were removed at the end of the case. The C-arm was brought in and spun around the patient. And the information from the same was along the computer in order to facilitate using this for placing the computer navigated screws. Is brought to placing the computer navigated screws. The technique for placing the pedicle screws was to use a drill followed by the gearshift probe linked to computer navigation. Followed by the ball probe to feel the superior inferior medial lateral esparza of the pedicles. Then placement of the screws using computer navigation. Was done at each pedicle. Screws were placed at L3 bilaterally, a L4 bilaterally, L5 bilaterally,and S1 bilaterally. Next attention was brought to performing the laminectomy ofL5. This was done using the high-speed bur Kerrisons and curettes. Once the lamina was removed and then attention was brought to performing a partial facetectomy on the contralateral side. This was done again using the high-speed bur curettes and Kerrisons. The ligamentum flavum was taken down bilaterally from L5 to S1. Attention was then brought to the facet on the ipsilateral side. The facet was taken down. The S1 nerve was decompressed as it passed around the S1 pedicle. The laminectomy was done for purposes of decompressing the nerve as well as placement of the cage. The L5 nerve was identified as it traversed through the L5/S1 foramen. The thecal sac was identified and retracted. The L5/S1 disc base was identified. Using a knife the disc base was opened. And then sequential wilner were placed. The first shaver was a 6 and the last shaver was a 9. Using a pituitary and down going curette the endplates were scraped and disc material was removed from the space. Once adequate decompression of the disc base was felt to be had. Osteoamp sponge was packed into the anterior aspect of the disc base. Then a size 10 cage from [place] was placed after packing osteoamp into the cage. While placing the cage the thecal sac and L need to nerve was protected. C arm was used to ensure that the cages placed in the appropriate position. Laminectomy was then done on the L4 level. A full laminectomies performed with a high-speed bur. Kerrison rongeur is taken remaining laminectomy. Medial aspect of surgery was taken down with a high-speed bur as well as curved curettes and laminectomy. The L4 nerve was traced around through the foramen of the L4-5 foramen. The L5 nerve was traced around the L5 pedicle. [place] to be adequately decompressed. I was planning on placing cage of the symptomatic scar tissue from previous surgery at this point my plan was to just rely on the fusion and decompression. Attention was then brought to attaching the rods to the screws placed in the L3 bilaterally, L4 bilaterally, L5 bilaterally and S1 bilaterally. Caps were torqued into position. Locking the construct in place. Wound was copiously irrigated and then attention was brought to decorticating the facets and transverse processes laterally. Bone that was taken down from the lamina was used along with osteoamp fibers and sponges were packed into the lateral gutters along the facet joints. This was done bilaterally. Wound was then closed in a layered fashion starting with the thoracolumbar fascia. 0-vicryl was used the sub cutaneous tissue was closed with 2-0 vicryl and skin with 4-0 monocryl. Glue was then used to seal the skin and a steril dressing was applied. Patient was then placed in the supine position. The endotracheal tube was removed and patient was transferred to the PACU in stable condition.
--- NOTE | 2022-07-21 16:33 | ANE.PACU2 ---
Inpatient post-anesthesia follow up: Airway intact: Yes Vital signs: Temperature 97.9 F Pulse Rate 97 Respiratory Rate 16 Blood Pressure 139/91 Pulse Oximetry 92 Oxygen Delivery Me thod Room Air Oxygen Flow Rate 6 Fraction of Inspir ed Oxygen Hydration adequate: Yes Nausea and vomiting: No Pain level: 3 Mental status: Baseline
[2022-07-21] MEDS: metformin 500 mg Tablet 1000 MG PO (17:12)
[2022-07-21] MEDS: diazePAM 5 mg Tablet 10 MG PO (17:12)
[2022-07-21] MEDS: HYDROcodone-acetaminophen 5-325 mg Tablet PO ×2 (17:12→23:33)
[2022-07-21] MEDS: docusate sodium 100 mg Capsule PO (17:12)
[2022-07-21] MEDS: gabapentin 400 mg Capsule 800 MG PO (20:34)
[2022-07-21] MEDS: albuterol 2.5 mg/3 mL Neb INHALATION (20:43)
[2022-07-21] MEDS: budesonide 0.5 mg/2 mL Neb INHALATION (20:48)
[2022-07-21] MEDS: morphine 4 mg/mL SDV 1 mL 2 MG IVP ×2 (20:56→22:35)
[2022-07-22] VITALS (8 sets, daily range): BP systolic 111–151; BP diastolic 70–87; PULSE 88–98; RESP 15–17; TEMP 36.9–37.1; O2SAT 94–96
[2022-07-22] MEDS: morphine 4 mg/mL SDV 1 mL 2 MG IVP ×3 (01:42→07:00)
[2022-07-22] MEDS: lactated ringers 1,000 ML 90 ML IV (02:52)
[2022-07-22] MEDS: ceFAZolin 2,000 MG in sodium chloride 0.9% (plus) 50 ML 100 MG IV (03:49)
--- NOTE | 2022-07-22 06:57 | P.PN_ITS ---
Subjective Subjective: POD 1 Patient reporting back pain. Reports improvement legs. Denies headaches, chest pain, shortness of breath. Vitals/I&O/Wt Last Vital Signs Temp 98.5 F 07/22/22 04:00 Pulse 92 07/22/22 04:00 Resp 16 07/22/22 04:00 BP 123/85 07/22/22 04:00 Pulse Ox 95 07/22/22 04:00 O2 Del Method 07/22/22 04:00 O2 Flow Rate 6 07/21/22 15:49 07/21/22 07/21/22 07/22/22 14:59 22:59 06:59 Intake Total 50 / 50 1243 / 1293 50 / 1343 Output Total 1999 685 / 2685 Balance 50 / 50 -757 / -707 -635 / -1342 Weight last 48 hrs Weight 173 lb Physical Exam Narrative: Patient presents alert and oriented x3 with a good general appearance normal mood and affect. Normal coordination normal stability. Mild tenderness around the incisional site with the incision appear to be and dry. Hemovac intact no signs of erythema or drainage. No signs of infection. Patient denies any fevers or chills. 5/5 motor strength both lower extremities with negative straight leg raise bilaterally. Calves are supple no medial thigh tenderness. Pulses are 2+ at the dorsalis pedis and posterior tibial region. Good capillary refill throughout normal sensation light touch both lower extre mities. Urinary Catheter Management: Berman: Cath Placed During This Visit: yes Reason for Continuing Indwelling Catheter: Perioperative Use in Selected Surgeries Urinary Catheter Date of Insertion: 07/21/22 Urinary Catheter Time of Insertion: 12:32 Data 07/21/22 10:50 07/16/22 10:20 A&P Assessment and plan (1) Status post lumbar spinal fusion: We will discontinue the Berman catheter discontinue the Hemovac drain change the dressing with Silverlon. Encourage incentive spirometry for pulmonary toilet. Physical therapy work on mobilization. Have social sciences professor arranged home health care. Work for discharge home today or tomorrow. We will have him follow-up in the office in 1 week's time for a wound check if he goes today. Attestations Medical Necessity Statement*: Home today or tomorrow based on patient's stability Coding Level of Care Code Acute Code for Chg Fwd Diagnoses Status post lumbar spinal fusion Z98.1
--- NOTE | 2022-07-22 09:19 | PC.NURSE ---
REMOVED LORENZ CATH AND ELPIDIO DRAIN AT APPROX 0745 PER DRS ORDER. PT TOLERATED WELL.
[2022-07-22] MEDS: budesonide 0.5 mg/2 mL Neb INHALATION (09:35)
[2022-07-22] MEDS: albuterol 2.5 mg/3 mL Neb INHALATION (09:37)
[2022-07-22] MEDS: metformin 500 mg Tablet 1000 MG PO (09:45)
[2022-07-22] MEDS: HYDROcodone-acetaminophen 5-325 mg Tablet PO (09:45)
[2022-07-22] MEDS: gabapentin 400 mg Capsule 800 MG PO (09:45)
[2022-07-22] MEDS: lisinopril 20 mg Tablet PO (09:46)
[2022-07-22] MEDS: escitalopram 10 mg Tablet 20 MG PO (09:46)
--- NOTE | 2022-07-22 10:30 | PC.NURSE ---
PTS DC ORDER WERE IN AND PT IS WAITING FOR RIDE, WAS SET UP THROUGH [employer]. PT WAS ENCOURAGED AND EDUC. TO WAIT IN HIS ROOM. PT REFUSED AND WANTED TO GO SMOKE. AGAIN RN EDUC RISK OF SMOKING. ALSO EDUC THAT WITH THE RIDE ALREADY BEING SET UP, IF HE MISSED THE RIDE THAT HE WOULD HAVE TO PAY OUT OF POCKET FOR ANOTHER RIDE. PT INSISTED ON NOT WAITING FOR THE RIDE. HE STATED I WILL GO GET MY MEDS AND WAIT DOWN STAIRS. PT SIGNED D/C PAPERS AND LEFT THE FLOOR, HE REFUSED A W/C OR TO BE ESCORTED, HE WALKED WITH HIS PERSONAL WALKER.
--- NOTE | 2022-07-22 10:42 | PC.CHAP ---
Pastoral Care Encounter/Spiritual Assessment Type of Contact [] Declined osteopathic physician visit [] Patient/Family/Request visit [] Outpatient visit [] Follow-up visit [] Physician referral [] Code/Alert [x] Routine visit [] Staff referral [] Actively dying [] Patient sleeping [] Family support [] [] Out of room [] Palliative care [] [x] Receiving care in room [] Pre-surgical visit [] Trauma [] Long length of stay [] ICU visit [] Other: Relational/Emotional Strength [] Patient feels connected with others/family/visitors/staff [] Distress [] Loneliness/isolation [] Abandonment Spirituality of Patient [] Person of Marielena [] Attends Rastafarian of their Marielena [] Believes in Prayer [] Reads Bible or Spiritism materials [] There are Spiritual issues to be addressed [employer]er Interventions [] Prayer [] Active listening [] Non-anxious presence [] Spiritual/emotional support [] Crisis/trauma care [] Spiritual counseling [] Bereavement support [] Provided bereavement packet [] Provided Bible/devotional materials [] Provided toy/stuffed animal, coloring book to patient or family member [] Provided Communion [] Anointing/[place] [] Salvation [] Completed spiritual assessment [] Other: Impact on Illness or Injury [] Angry [] Fearful [] Anxious [] Often cries [] Exhaustion [] Unable to work [] Unable to attend congregation [] Unable to walk/stand [] Unable to read [] Unable to drive [] Unable to eat/drink [] Unable to sleep [] Unable to be with family [] Patient intubated [] Other: Summary unn able to coommunicate staff care Time spent with patient
--- NOTE | 2022-07-26 06:38 | P.DS_ITS ---
Discharge Providers Date of Admission: 07/21/22 16:10 Date of Discharge: July 22, 2022 Attending Provider at Admission: Ayush Peterson DO Attending Provider at Discharge: Ayush Peterson DO Primary Care Provider: Emmanuel Florian MD Diagnoses at Discharge Discharge Diagnosis (1) Status post lumbar spinal fusion: Status: Acute Reason for Visit Reason for Visit: L3-S1 PFS W/DECOMPRESSION Hospital Course Hospital Course pain controlled Physical Exam Urinary Catheter Management: Berman: Cath Placed During This Visit: yes Reason for Continuing Indwelling Catheter: Perioperative Use in Selected Surgeries Urinary Catheter Date of Insertion: 07/21/22 Urinary Catheter Time of Insertion: 12:32 Discharge Data Studies Completed and Pending Completed Studies During Hospitalization Category Date Time Status XR lumbar spine 1V [id number] Routine Exams 07/21/22 15:26 Completed Radiology Impressions Lumbar Spine X-Ray 07/21/22 15:26 IMPRESSION: Limited imaging of the lumbar spine during surgery with no abnormality as above. Laboratory Results WBC 9.7 10^3/uL (4.0-10.0) 07/21/22 10:50 Corrected WBC Cancelled 07/16/22 10:20 RBC 4.98 10^6/uL (4.1-5.3) 07/21/22 10:50 Hgb 16.0 g/dL (11.7-16.6) 07/21/22 10:50 Hct 48.0 % (42.0-52.0) 07/21/22 10:50 MCV 96.4 fl (80-94) H 07/21/22 10:50 MCH 32.1 pg (28.0-34.0) 07/21/22 10:50 MCHC 33.3 g/dL (30.0-36.0) 07/21/22 10:50 RDW 15.9 % (12.1-15.1) H 07/21/22 10:50 Plt Count 196 10^3/cmm (130-400) 07/21/22 10:50 MPV 10.8 fL (7.4-10.4) H 07/21/22 10:50 Gran % Cancelled 07/16/22 10:20 Neut % (Auto) 69.0 % 07/21/22 10:50 Lymph % (Auto) 17.3 % 07/21/22 10:50 Dukes % (Auto) 11.6 % 07/21/22 10:50 Eos % (Auto) 1.4 % 07/21/22 10:50 Baso % (Auto) 0.3 % 07/21/22 10:50 Neut # (Auto) 6.67 10^3/uL (1.8-7.7) 07/21/22 10:50 Lymph # (Auto) 1.7 10^3/uL (0.8-4.8) 07/21/22 10:50 Dukes # (Auto) 1.1 10^3/uL (0.2-0.9) H 07/21/22 10:50 Eos # (Auto) 0.1 10^3/uL (0.0-0.8) 07/21/22 10:50 Baso # (Auto) 0.0 10^3/uL (0.0-0.1) 07/21/22 10:50 Absolute Gran (auto) Cancelled 07/16/22 10:20 Nucleated RBC % (auto) 0 % 07/21/22 10:50 Nucleated RBCs # 0.0 /100WBC 07/21/22 10:50 Sodium 139 mmol/L (136-145) 07/16/22 10:20 Potassium 5.1 mmol/L (3.5-5.1) 07/16/22 10:20 Chloride 102 mmol/L (98-107) 07/16/22 10:20 Carbon Dioxide 27 mmol/L (22-29) 07/16/22 10:20 Anion Gap 15.1 (5-19) 07/16/22 10:20 BUN 10 mg/dL (6-20) 07/16/22 10:20 Creatinine 1.0 mg/dL (0.7-1.2) 07/16/22 10:20 GFR Calculation 77.9 mL/min (90-130) L 07/16/22 10:20 Glucose 142 mg/dL (65-115) H 07/16/22 10:20 POC Glucose 132 mg/dL (70-110) H 07/21/22 10:52 Calculated Osmolality 289 mOsm/kg (285-295) 07/16/22 10:20 Calcium 8.9 mg/dL (8.5-10.5) 07/16/22 10:20 Blood Type B Positive 07/21/22 10:50 Rho(D) Type Positive 07/21/22 10:50 Antibody Screen Negative 07/21/22 10:50 Vitals Last Vital Signs Temp 98.5 F 07/22/22 08:00 Pulse 98 07/22/22 12:01 Resp 16 07/22/22 12:01 BP 151/87 07/22/22 08:00 Pulse Ox 96 07/22/22 12:01 O2 Del Method 07/22/22 09:39 O2 Flow Rate 6 07/21/22 15:49 Discharge Plan Discharge Patient Disposition: Home Health Service Condition: Stable Prescriptions: New hydrocodone-acetaminophen 5-325 mg Tablet 1 - 2 tab PO Q4H PRN (Reason: post Operative pain) Qty: 40 0RF Continued albuterol sulfate 90 mcg/actuation HFA aerosol inhaler 2 puff inhalation Q6H PRN (Reason: short of breath) metformin 1,000 mg tablet 1,000 mg PO BID lisinopril 20 mg tablet 20 mg PO DAILY@09 omeprazole 20 mg capsule,delayed release(DR/EC) 20 mg PO BID@,21 PRN (Reason: Acid Reflux) fluticasone propionate [Flonase Allergy Relief] 50 mcg/actuation spray,suspension 2 spray INTRANASAL BID@, Symbicort 80-4.5 mcg/actuation HFA aerosol inhaler 2 puff INHALATION BID@, sildenafil [Viagra] 25 mg tablet 25 mg PO DAILY PRN (Reason: Sexual Activity) Rx Instructions: administer 30 minutes to 4 hours before activity (DME) corset back brace with suspenders See Rx Instructions .Route .MEDSUPPLY Qty: 1 0RF Rx Instructions: As directed gabapentin 800 mg tablet 800 mg PO TID diazepam 10 mg tablet 10 mg PO BID PRN (Reason: anxiety) 30 Days Qty: 60 3RF escitalopram oxalate [Lexapro] 20 mg tablet 20 mg PO DAILY 30 Days Qty: 30 3RF trazodone 50 mg tablet 50 mg PO .qhs 30 Days Qty: 30 3RF Ozempic 1 mg/dose (4 mg/3 mL) pen injector 0.5 mg SUBCUT .weekly Repatha SureClick 140 mg/mL pen injector 140 mg SUBCUT .every 2 weeks (DME) intraoperative neuromonitoring See Rx Instructions .Route .MEDSUPPLY Qty: 1 0RF Rx Instructions: As directed terbinafine HCl 250 mg tablet 250 mg PO DAILY 90 Days Qty: 30 2RF No Action tizanidine 4 mg capsule 4 mg PO TID PRN (Reason: muscle spasticity) 10 Days Qty: 30 0RF Discharge Orders: Discharge Order (Routine); Ordered 07/22/22 Ordered By: Mitchel Day Referrals: [facility]) [Outside] Ayush Peterson DO [Physician] - 08/10/22 2:15 pm Discharge Diet: Advance as tolerated Discharge Activity: Limit activity as instructed Patient Instructions: Hydrocodone/Acetaminophen (By mouth), Lumbar Spinal Fusion (GEN), Opioid Safety Activity Restrictions/Additional Instructions: Thank you for choosing [facility] for your care! The following is a list of instructions, from your provider, to follow upon your discharge to ensure you have the optimal recovery from your recent injury or surgery. Follow-up care is a sebastian part of your treatment and safety. Be sure to make and go to all appointments and call your doctor if you are having problems. If you do not already have a follow-up appointment made, call Dr. Peterson's] office in the next 1-3 days to make follow up appointment for 1 weeks at [phone]. It is also a good idea to know your test results and keep a list of the medicines you take. Medications will be prescribed for you at your provider's discretion. These medications are to be used as instructed; if they are taken more often that prescribed they will not be refilled early and in most cases will not be refilled at all. > When a refill is needed, you should contact roel noyola 2-3 business days before your prescription runs out. Medications will NOT be refilled by pensions retirement plan specialist providers after hours! > Many pain medications contain Tylenol (Acetaminophen). Do not consume more than 4,000 mg of Tylenol per day in total with any combination of medications. > Pain medications can cause constipation. Please use an over the counter stool softener as directed, while taking pain medications. Consult your local pharmacist with questions or recommendations on stool softeners. If constipation persists, contact our office or your primary care provider. > While under our care, you are not to receive pain medications or other controlled substances from any other provider unless our office is notified and approves. Any attempts to do so will result in refusal to prescribe any further pain medications and possible dismissal from our practice. ? Walking is essential for the healing process after surgery. We would like you to slowly advance your walking. This should be done on relatively flat clear ground (inside or out) or can be done on a treadmill. Remember this goal does not have to happen all at once, slowly increase your distance and duration. This can be broken into more more than one walk per day as tolerated. Patients who walk as directed after surgery rarely require Physical Therapy. In the unlikely event this issue arises your provider will direct hospital staff to make the appropriate arrangements. ? No lifting over 5 pounds {a gallon of milk) or bending/twisting until further notice. Each of these activities places an unnecessary amount of stress onto the body and can impede the delicate healing process. > Instead of bending at the waist, keep your back straight and bend at the knees. > Instead of twisting your torso, keep your back straight and turn your entire body with your feet. ? You may sleep in any position which makes you comfortable. Many patients find comfort sleeping in a reclining chair. It is not abnormal to have difficulty sleeping for the first several weeks following your surgery. We recommend trying Benadry! or Tylenol PM as directed to help with your sleeping difficulties. Both medications are over the counter and available without prescription. ? NO SMOKING!!! Smoking dramatically increases the probability of developing postoperative wound infections. ? Common complaints after lumbar and/or thoracic spine surgery include, but are not limited to: numbness and/or tingling in the legs, pain around the incision and surrounding tissues, muscle spasms, or stiffness of the middle to low back. Contact our office if these symptoms persist or if an acute change occurs. ? No driving for the first 3-5days, and not while taking narcotics until seen at your follow-up appointment and cleared. There are no restrictions for riding on short trips, however if you take a longer trip, arrangements should be made to make regular stops to get out of the vehicle and stretch . ? Swelling is an unfortunate event that will take place with any surgery and is the primary source of your postoperative discomfort. While walking and regular approved activities helps control inflammation, there are additional steps you can take to minimize swelling. > Place ice over the surgical site and surrounding tissue for twenty minutes, followed by applying a low/medium heat (heating pad) for an additional twenty minutes every 1-2 hours as needed for painrelief. > You may use of over the counter anti-inflammatory medications (Ibuprofen, Motrin, Aleve, Advil, etc) as directed on the package label. These types of medicines will significantly reduce the amount of discomfort you experience after surgery from swelling. It should be noted that if you have and allergy to any of these medications, or a history of ulcers or kidney disease you should consult you primary care provider prior to starting these medications. Discharge Attestations Time Spent in Discharge Care*: less than 30 min Quality Metrics Clinical Quality Measures [ No reported AMI, CVA or VTE this stay] Coding Level of Care Code Acute g DC note Diagnoses Status post lumbar spinal fusion Z98.1
== END 2022-07-22 10:30 | disposition home health service (06) | DRG 460 ==
LOC: MEDSURG 16:10
PROVIDERS: Anesthesiology; Admitting Provider Orthopaedic Surgery; PCP Family Medicine; Visit Provider Orthopaedic Surgery
PROC: 0SG107J Fusion of 2 or more Lumbar Vertebral Joints with Autologous Tissue Substitute, Posterior Approach, Anterior Column, Open Approach (ICD-10-PCS; principal; 2022-07-21 11:45)
PROC: 0SG107J Fusion of 2 or more Lumbar Vertebral Joints with Autologous Tissue Substitute, Posterior Approach, Anterior Column, Open Approach (ICD-10-PCS; CPT 63005; 2022-07-21 11:45)
DX: M48.062 Spinal stenosis, lumbar region with neurogenic claudication (principal); F17.210 Nicotine dependence, cigarettes, uncomplicated; Z79.891 Long term (current) use of opiate analgesic
CPT/HCPCS: 36415; 36416; 51702; 72020; 80048; 82962; 85025; 86850; 86900; 93005; 94640; 97161; 97530; C1713; J0131; J0690; J1100; J1170; J1644; J2270; J2405; J2704; J3010; J3370; J3490; J7030; J7120; J7613; J7626

== ENCOUNTER → 2022-07-29 13:57 | Outpatient (BNVA) | payer MEDICARE, MEDICAID, SELFPAY ==
[2021-07-10 13:40] VITALS: BMI 24.8
== END ==
PROVIDERS: PCP Family Medicine; Visit Provider Physician Assistant
DX: Z98.1 Arthrodesis status (principal)
CPT/HCPCS: 99024

== ENCOUNTER → 2022-08-17 13:41 | Outpatient (BNVA) | payer MEDICARE, MEDICAID, SELFPAY ==
[2022-08-17 14:07] VITALS: BMI 24.8
== END ==
PROVIDERS: PCP Family Medicine; Visit Provider Orthopaedic Surgery
DX: Z47.89 Encounter for other orthopedic aftercare (principal); Z98.1 Arthrodesis status
CPT/HCPCS: 99024

== ENCOUNTER → 2022-09-07 13:40 | Outpatient (BNVA) | payer MEDICARE, MEDICAID, SELFPAY ==
[2022-08-17 14:07] VITALS: BMI 24.8
== END ==
PROVIDERS: PCP Family Medicine; Visit Provider Orthopaedic Surgery
DX: Z98.1 Arthrodesis status (principal); Z47.89 Encounter for other orthopedic aftercare
CPT/HCPCS: 72100; 99024

== ENCOUNTER 2022-09-14 11:55 | Outpatient (CLI) | payer MEDICARE, MEDICAID, SELFPAY ==
[2022-08-17 14:07] VITALS: BMI 24.8
--- NOTE | 2022-09-14 12:01 | CT_ITS ---
WS: [id number] LDCT LUNG CANCER SCREENING HISTORY: NICOTINE DEPENDENCE, CIGARETTES TECHNIQUE: Axial imaging performed from the apices to 1 cm below the costophrenic angles. Coronal and sagittal reformats are submitted with axial MIP series. All CT scans at [facility] use at least one of these dose optimization techniques: automated exposure control; mA and/or kV adjustment per patient size (includes targeted exams where dose is matched to clinical indication); or iterativ e reconstruction. DLP: 83.40 mGy.cm DIvol: Mean CTDIvol: 1.60 (mGy) COMPARISON: None available. Diagnostic quality: Satisfactory Lungs: Mild pulmonary hyperexpansion. 2 nodules in the periphery LEFT lower lobe. The largest is roun ded measuring 5 mm. Smaller slightly spiculated nodule measures 4 mm. No additional mass or nodule. N o endobronchial lesions. Heart: Normal size heart with no pericardial effusion.. Other findings: Moderate coronary artery calcifications. Calcifications in the LEFT main, circumflex and LAD. Normal size aorta. No adenopathy. Normal size pulmonary artery. Chest deformity may be from prior trauma. CT/CT lung screening [id number] IMPRESSION: LUNG-RADS: 3-Probably Benign FOLLOW UP: 6 Month LDCT OTHER FINDINGS (S MODIFIER): None.
== END 2022-09-14 11:56 | disposition home or self-care (01) ==
LOC: RAD 11:58
PROVIDERS: PCP Family Medicine; Visit Provider Family Medicine
DX: Z12.2 Encounter for screening for malignant neoplasm of respiratory organs (principal); F17.210 Nicotine dependence, cigarettes, uncomplicated
CPT/HCPCS: 71271

== ENCOUNTER → 2022-10-07 13:56 | Outpatient (BNVA) | payer MEDICARE, MEDICAID, OTHER, SELFPAY ==
[2022-08-17 14:07] VITALS: BMI 24.8
== END ==
PROVIDERS: PCP Family Medicine; Visit Provider Orthopaedic Surgery
DX: M16.12 Unilateral primary osteoarthritis, left hip (principal); Z98.1 Arthrodesis status
CPT/HCPCS: 72100; 73502; 99024

== ENCOUNTER → 2022-10-19 13:29 | Outpatient (BNVA) | payer MEDICARE, MEDICAID, SELFPAY ==
[2022-08-17 14:07] VITALS: BMI 24.8
== END ==
PROVIDERS: PCP Family Medicine; Visit Provider Orthopaedic Surgery
DX: Z98.1 Arthrodesis status (principal); Z47.89 Encounter for other orthopedic aftercare
CPT/HCPCS: 72100; 99024

== ENCOUNTER → 2023-01-18 13:11 | Outpatient (BNVA) | payer MEDICARE, MEDICAID, SELFPAY ==
[2022-08-17 14:07] VITALS: BMI 24.8
== END ==
PROVIDERS: PCP Family Medicine; Visit Provider Orthopaedic Surgery
DX: Z98.1 Arthrodesis status (principal); M48.062 Spinal stenosis, lumbar region with neurogenic claudication
CPT/HCPCS: 72100; 99213

== ENCOUNTER → 2023-03-30 10:52 | Outpatient (BNVA) | payer MEDICARE, MEDICAID, SELFPAY ==
[2022-08-17 14:07] VITALS: BMI 24.8
== END ==
PROVIDERS: PCP Family Medicine; Visit Provider Podiatrist Foot & Ankle Surgery
DX: M21.621 Bunionette of right foot (principal); M21.622 Bunionette of left foot; M20.41 Other hammer toe(s) (acquired), right foot; M20.42 Other hammer toe(s) (acquired), left foot; I73.9 Peripheral vascular disease, unspecified; L60.3 Nail dystrophy; B35.3 Tinea pedis; E11.21 Type 2 diabetes mellitus with diabetic nephropathy; B35.1 Tinea unguium; Z79.84 Long term (current) use of oral hypoglycemic drugs
CPT/HCPCS: 99213

== ENCOUNTER 2023-04-06 09:01 | Outpatient (CLI) | payer MEDICARE, MEDICAID, SELFPAY ==
[2022-08-17 14:07] VITALS: BMI 24.8
--- NOTE | 2023-04-06 09:10 | CTR_ITS ---
PROCEDURE INFORMATION: Exam: CT Chest Without Contrast; Diagnostic Exam date and time: 04/06/2023 9:42 AM Age: 57 years old Clinical indication: Abnormal findings; Abnormal radiologic exam of lung or chest; Additional info: Lung nodule TECHNIQUE: Imaging protocol: Diagnostic computed tomography of the chest without contrast. Radiation optimization: All CT scans at this facility use at least one of these dose optimization techniques: automated exposure control; mA and/or kV adjustment per patient size (includes targeted exams where dose is matched to clinical indication); or iterative reconstruction. REPORTING DATA: Count of CT and Cardiac NM exams in prior 12 months: This patient has received [address] and 0 known cardiac nuclear medicine studies in the 12 months prior to the current study. COMPARISON: CT lung screening [id number] 09/14/2022 12:05 PM RADIATION DOSE METRICS: Total DLP (mGy-cm): 379.34 FINDINGS: Lungs: 5 mm circumscribed rounded pulmonary nodule left lung base, stable. 3 mm sessile shaped nodule superior segment left lower lobe also unchanged. No other pulmonary nodules appreciated. Lung bright aerated and clear. Pleural spaces: Unremarkable. No pneumothorax. No pleural effusion. Heart: Heart is not significantly enlarged. There are mild calcifications of the coronary arteries. No significant pericardial effusion. Lymph nodes: Unremarkable. No enlarged lymph nodes. Vasculature: Unremarkable. No aortic aneurysm. Bones/joints: Old healed fractures right posterior ribcage. No acute bony abnormalities. Soft tissues: Unremarkable. CT/CT chest wo con [id number] IMPRESSION: Stable 5 mm pulmonary nodule left lower lobe. Consider 1 year follow-up study for continued surveillance.
== END 2023-04-06 09:02 | disposition home or self-care (01) ==
PROVIDERS: PCP Family Medicine; Visit Provider Family Medicine
DX: R91.1 Solitary pulmonary nodule (principal)
CPT/HCPCS: 71250

== ENCOUNTER 2023-05-03 11:49 | Outpatient (RCR) | payer MEDICARE, MEDICAID, SELFPAY ==
[2022-08-17 14:07] VITALS: BMI 24.8
== END 2023-05-03 23:59 | disposition home or self-care (01) ==
LOC: SPT 11:49
PROVIDERS: PCP Family Medicine; Visit Provider Orthopaedic Surgery
DX: Z98.1 Arthrodesis status (principal)
CPT/HCPCS: 97110; 97161

== ENCOUNTER → 2023-10-13 10:51 | Outpatient (BNVA) | payer MEDICARE, OTHER, SELFPAY ==
[2022-08-17 14:07] VITALS: BMI 24.8
== END ==
PROVIDERS: PCP Family Medicine; Visit Provider Orthopaedic Surgery
DX: Z98.1 Arthrodesis status (principal); M25.551 Pain in right hip
CPT/HCPCS: 72110; 73502; 99214

== ENCOUNTER → 2023-11-23 10:01 | Outpatient (BNVA) | payer MEDICARE, MEDICAID, SELFPAY ==
[2022-08-17 14:07] VITALS: BMI 24.8
== END ==
PROVIDERS: PCP Family Medicine; Referring Provider Family Medicine; Visit Provider Surgery
DX: Z12.11 Encounter for screening for malignant neoplasm of colon (principal)
CPT/HCPCS: 99024; 99203

== ENCOUNTER → 2023-12-06 15:46 | Outpatient (BNVA) | payer MEDICARE, MEDICAID, SELFPAY ==
[2022-08-17 14:07] VITALS: BMI 24.8
== END ==
PROVIDERS: PCP Family Medicine; Visit Provider Orthopaedic Surgery
DX: Z98.1 Arthrodesis status (principal); M54.9 Dorsalgia, unspecified; M25.552 Pain in left hip
CPT/HCPCS: 72100; 99214

== ENCOUNTER → 2023-12-22 15:38 | Outpatient (BNVA) | payer MEDICARE, MEDICAID, SELFPAY ==
[2022-08-17 14:07] VITALS: BMI 24.8
== END ==
PROVIDERS: PCP Family Medicine; Visit Provider Orthopaedic Surgery
DX: Z98.1 Arthrodesis status (principal); M54.9 Dorsalgia, unspecified
CPT/HCPCS: 72100; 99213

== ENCOUNTER 2023-12-27 17:06 | Outpatient (CLI) | payer MEDICARE, MEDICAID, SELFPAY ==
[2022-08-17 14:07] VITALS: BMI 24.8
--- NOTE | 2023-12-27 17:15 | CTR_ITS ---
PROCEDURE INFORMATION: Exam: CT Lumbar Spine Without and With Contrast Exam date and time: 12/27/2023 5:19 PM Age: 58 years old Clinical indication: Low back pain; Prior surgery; Surgery date: 6+ months; Patient HX: Strained back last Tuesday TECHNIQUE: Imaging protocol: Computed tomography of the lumbar spine without and with contrast. Radiation optimization: All CT scans at this facility use at least one of these dose optimization techniques: automated exposure control; mA and/or kV adjustment per patient size (includes targeted exams where dose is matched to clinical indication); or iterative reconstruction. Contrast material: OMNI 350; Contrast volume: 100 ml; Contrast route: INTRAVENOUS (IV); COMPARISON: MR lumbar spine wo con* [id number] 06/07/2022 12:10 PM RADIATION DOSE METRICS: Total DLP (mGy-cm): 701.53 FINDINGS: No acute fracture or other obvious acute osseous abnormality of the lumbar spine is identified. There are bilateral L3, L4, L5, and S1 transpedicular screws with adjoining vertical rods. Metallic disc spacer at the L5-S1 disc space. Posterolateral bone graft material is present bilaterally. The patient is status post L5 laminectomy. SI joints appear grossly unremarkable. Fluid is present in the laminectomy site eccentric to the left (e.g. series 12, image 98). Appearance is nonspecific but may represent seroma. Consider aspiration if there is clinical suspicion of infection. The central canal is not optimally imaged due to artifact from the spinal hardware and absence of intrathecal contrast. There is no evidence of abscess involving the psoas muscles or posterior paraspinous musculature. Incidental note of extensive aortoiliac atherosclerotic disease. Kidneys are incompletely imaged but there is no evidence of hydronephrosis. CT/CT lumbar spine wo/w con [id number] IMPRESSION: There are expected postoperative changes of the lumbar spine. No acute fracture identified. Please see details provided above.
[2023-12-27] MEDS: iohexol 350 mg/mL 500 mL Btl (per mL) IV (17:37)
== END 2023-12-27 17:07 | disposition home or self-care (01) ==
PROVIDERS: PCP Family Medicine; Visit Provider Orthopaedic Surgery
DX: M96.1 Postlaminectomy syndrome, not elsewhere classified (principal); M43.26 Fusion of spine, lumbar region; I70.0 Atherosclerosis of aorta
CPT/HCPCS: 72133; Q9967

== ENCOUNTER → 2024-03-20 14:03 | Outpatient (BNVA) | payer MEDICARE, SELFPAY ==
[2022-08-17 14:07] VITALS: BMI 24.8
== END ==
PROVIDERS: PCP Family Medicine; Visit Provider Orthopaedic Surgery
DX: Z98.1 Arthrodesis status (principal); M48.062 Spinal stenosis, lumbar region with neurogenic claudication
CPT/HCPCS: 72100; 99214

== ENCOUNTER 2024-06-08 07:29 | Outpatient (CLI) | payer MEDICARE, MEDICAID, SELFPAY ==
[2022-08-17 14:07] VITALS: BMI 24.8
--- NOTE | 2024-06-08 07:52 | CT_ITS ---
WS: [id number] CT chest wo con [id number] HISTORY: LUNG NODULE/TOBACCO USE TECHNIQUE: Axial imaging performed through the thorax. Coronal and sagittal reformats are submitted. All CT scans at [facility] use at least one of these dose optimization techniques: automated exposure control; mA and/or kV adjustment per patient size (includes targeted exams where dose is mat ched to clinical indication); or iterative reconstruction. CONTRAST: None DLP: 388.39 mGy.cm COMPARISON: 04/06/2023, 09/14/2022 Lungs and central airway: Moderate pulmonary hyperexpansion from emphysema. New LEFT lung focal areas of groundglass attenuation. In the central LEFT upper lobe extending from the melissa is a focal area o f groundglass attenuation with the largest component measuring 1.7 x 2.2 cm. The groundglass attenuat ion extends into the more central and upper portion of the LEFT upper lobe. There is an additional ar ea of groundglass attenuation following the LEFT fissure. This area of groundglass attenuation extend s into the LEFT lower lobe measuring 2.1 x 2.0 cm. In the RIGHT middle lobe there is a new area of gr oundglass attenuation also. Round 5 mm nodule at the LEFT lung base is stable. Pleura: Normal. No pleural effusion. Heart and pericardium: Normal size heart with no pericardial effusion. Mediastinum and melissa: Several small mediastinal and hilar lymph nodes are similar to the prior exam. No adenopathy. Vessels: Atherosclerosis aorta. Normal size pulmonary artery. Chest wall and lower neck: No soft tissue masses. Upper abdomen: Hepatic steatosis. Mild perinephric stranding around each kidney. No adrenal mass. Osseous structures: Advanced sternoclavicular osteoarthritic changes. CT/CT chest wo con [id number] IMPRESSION: 1. Stable 5 mm nodule LEFT lower lobe. No change since 09/14/2022. Recommend ad ditional [address] follow-up to document long-term stability. 2. New bilateral areas of groundglass opacification. Groundglass opacification can be seen with edema, hemorrhage, viral pneumonia or acute hypersensitivity pneumonia. Low-grade bronchoalveolar neoplasm is also not excluded. Consider sh ort-term follow-up chest CT after treatment.
== END 2024-06-08 07:30 | disposition home or self-care (01) ==
PROVIDERS: PCP Family Medicine; Visit Provider Family Medicine
DX: R91.8 Other nonspecific abnormal finding of lung field (principal); J43.9 Emphysema, unspecified; I70.0 Atherosclerosis of aorta; K76.0 Fatty (change of) liver, not elsewhere classified; Z72.0 Tobacco use
CPT/HCPCS: 71250

== ENCOUNTER → 2024-07-24 08:04 | Outpatient (BNVA) | payer MEDICARE, MEDICAID, SELFPAY ==
[2022-08-17 14:07] VITALS: BMI 24.8
== END ==
PROVIDERS: PCP Family Medicine; Visit Provider Orthopaedic Surgery
DX: Z98.1 Arthrodesis status (principal); M48.062 Spinal stenosis, lumbar region with neurogenic claudication; M54.50 Low back pain, unspecified; M79.606 Pain in leg, unspecified; Z09 Encounter for follow-up examination after completed treatment for conditions other than malignant neoplasm
CPT/HCPCS: 72110; 99214

== ENCOUNTER → 2024-08-29 11:18 | Outpatient (BNVA) | payer MEDICARE, MEDICAID, SELFPAY ==
[2024-08-15 16:05] VITALS: BMI 24.8
== END ==
PROVIDERS: PCP Family Medicine; Visit Provider Surgery
DX: D17.23 Benign lipomatous neoplasm of skin and subcutaneous tissue of right leg (principal); M79.89 Other specified soft tissue disorders
CPT/HCPCS: 99214

== ENCOUNTER 2024-08-31 12:13 | Outpatient (CLI) | payer MEDICARE, MEDICAID, SELFPAY ==
[2024-08-15 16:05] VITALS: BMI 24.8
--- NOTE | 2024-08-31 12:21 | MR_ITS ---
WS: [id number] MRI LUMBAR SPINE NONCONTRAST HISTORY: lumbar pain radiaiting to left leg. COMPARISON: MRI 06/07/2022 TECHNIQUE: Sagittal and axial multisequence imaging is submitted. Posterior lumbar fusion extends from L3-S1. Normal posterior lumbar alignment. No fractures or marrow edema. Disc spacer at L5-S1. Remaining discs are well-maintained. Conus terminates normally at L1-2 disc level. L1-L2: Mild annular disc bulging with a shallow LEFT foraminal disc protrusion. Mild bilateral facet arthritis. Mild LEFT foraminal stenosis. L2-L3: Diffuse annular disc bulging with mild osteophytic ridging. Advanced facet joint arthritis and ligamentum flavum hypertrophy. Progression of central canal stenosis and subarticular recess stenosis since 2021. Mild to moderate central with bilateral subarticular recess and moderate foraminal stenosis. Greater encroachment upon the L2 and L3 nerve roots. L3-L4: Significant central stenosis or subarticular recess stenosis. Mild facet arthritis. Mild LEFT foraminal stenosis. L4-L5: Mild annular disc bulging with bilateral facet arthritis. Mild clumping of the nerve roots in the thecal sac. Central stenosis has been resolved. Artifact from fusion hardware obscuring detail. Prior RIGHT hemilaminectomy defect has been described at this level. There is also a large LEFT hemila minectomy defect. Mild LEFT foraminal stenosis. Improved LEFT foraminal stenosis. L5-S1: Mild osteophytic ridging with facet joint arthritis. No high-grade stenosis. Large LEFT hemilaminectomy defect. MR/MR lumbar spine wo con* [id number] IMPRESSION: 1. Status post posterior lumbar fusion from L3-S1. Interbody spacer at L5-S1. 2. Large laminectomy defects at L4-5 and L5-S1. 3. Improved central stenosis at L4-5 and also improved LEFT foraminal stenosis . There is still mild residual LEFT foraminal stenosis. 4. Mild LEFT foraminal stenosis at L1-2. 5. L2-3: Progression of central canal stenosis and subarticular recess stenosi s. Mild to moderate central with bilateral subarticular recess and moderate for aminal stenosis. There is encroachment upon the L2 and L3 nerve roots. 6. Mild LEFT foraminal stenosis at L3-4.
== END 2024-08-31 12:14 | disposition home or self-care (01) ==
PROVIDERS: PCP Family Medicine; Visit Provider Orthopaedic Surgery
DX: M48.062 Spinal stenosis, lumbar region with neurogenic claudication (principal); M79.606 Pain in leg, unspecified; M51.369 Other intervertebral disc degeneration, lumbar region without mention of lumbar back pain or lower extremity pain; Z98.1 Arthrodesis status; M96.89 Other intraoperative and postprocedural complications and disorders of the musculoskeletal system; R93.7 Abnormal findings on diagnostic imaging of other parts of musculoskeletal system; M47.896 Other spondylosis, lumbar region; M47.897 Other spondylosis, lumbosacral region
CPT/HCPCS: 72148

== ENCOUNTER 2024-09-07 14:33 | Outpatient (CLI) | payer MEDICARE, MEDICAID, SELFPAY ==
[2024-08-15 16:05] VITALS: BMI 24.8
--- NOTE | 2024-09-07 15:00 | US_ITS ---
WS: [id number] INDICATION: RIGHT thigh lipoma TECHNIQUE: Ultrasound RIGHT thigh FINDINGS: Well-circumscribed ovoid subcutaneous slightly echogenic lesion measuring 3.1 x 3.1 x 1.2 cm. No significant internal or feeding vascularity. No internal cystic change. Surrounding capsule appears well-circumscribed. Findings most compatible with lipoma. No other suspicious findings. US/US soft tissue/extremity [id number] IMPRESSION: 1. Suspected ovoid lipoma in the area of concern RIGHT groin/thigh
== END 2024-09-07 14:34 | disposition home or self-care (01) ==
PROVIDERS: PCP Family Medicine; Visit Provider Surgery
DX: D17.23 Benign lipomatous neoplasm of skin and subcutaneous tissue of right leg (principal)
CPT/HCPCS: 76882

== ENCOUNTER → 2024-09-11 07:55 | Outpatient (BNVA) | payer MEDICARE, MEDICAID, SELFPAY ==
[2024-08-15 16:05] VITALS: BMI 24.8
== END ==
PROVIDERS: PCP Family Medicine; Visit Provider Orthopaedic Surgery
DX: M48.062 Spinal stenosis, lumbar region with neurogenic claudication (principal)
CPT/HCPCS: 99214

== ENCOUNTER → 2024-09-19 12:51 | Outpatient (BNVA) | payer MEDICARE, MEDICAID, SELFPAY ==
[2024-08-15 16:05] VITALS: BMI 24.8
== END ==
PROVIDERS: PCP Family Medicine; Visit Provider Surgery
DX: Z09 Encounter for follow-up examination after completed treatment for conditions other than malignant neoplasm (principal)
CPT/HCPCS: 99213

== ENCOUNTER 2024-09-27 05:26 | Day surgery (SDC) | payer MEDICARE, MEDICAID, SELFPAY ==
[2024-08-15 16:05] VITALS: BMI 24.8
--- NOTE | 2024-09-27 05:47 | W.PM.OPSFHP ---
Same Day Surgery H&P Indication for Procedure/HPI DATE OF PROCEDURE: September 27, 2024 CHIEF COMPLAINT/INDICATIONFOR SURGICAL PROCEDURE: need for screening colonoscopy PREOP DIAGNOSIS: need for screening colonoscopy PLANNED PROCEDURE: Operation Date: 09/27/24 07:00 Proposed Procedures p Colonoscopy [id number] G0121 Z12.11(Not Applicable) - Minh Flores MD Medications/Allergies* Home Medications ?Medication ?Instructions ?Recorded ?Confirmed ?Type budesonide-formoterol HFA 80 2 puff inhalation BID@07/30/19 09/24/24 History mcg-4.5 mcg/actuation aerosol inhaler (Symbicort) fluticasone propionate 50 2 spray intranasal BID@07/30/19 09/24/24 History mcg/actuation nasal spray,suspension (Flonase Allergy Relief) omeprazole 20 mg capsule,delayed 20 mg PO BID@ PRN Acid Reflux 07/30/19 09/24/24 History release albuterol sulfate 90 mcg/actuation 2 puff inhalation Q6H PRN short of 07/03/20 09/24/24 History aerosol inhaler breath evolocumab 140 mg/mL subcutaneous 140 mg SUBCUT .every 2 weeks 10/13/21 09/24/24 History pen injector (Repatha SureClick) sildenafil 25 mg tablet (Viagra) 25 mg PO DAILY PRN Sexual Activity 01/21/22 09/24/24 History gabapentin 800 mg tablet 800 mg PO TID 07/13/22 09/24/24 History tiotropium bromide 1.25 2 puff inhalation DAILY 03/01/23 09/24/24 History mcg/actuation mist for inhalation (Spiriva Respimat) losartan 100 1 tab PO DAILY 09/01/23 09/24/24 History mg-hydrochlorothiazide 12.5 mg tablet metformin 1,000 mg tablet 1,000 mg PO DAILY 03/14/24 09/24/24 History oxycodone 10 mg tablet 10 mg PO QID 03/14/24 09/24/24 History varenicline tartrate 1 mg tablet 1 mg PO BID 03/14/24 09/24/24 History (Chantix) atorvastatin 10 mg tablet 10 mg PO .hs cholesterol 06/04/24 09/24/24 History semaglutide 0.25 mg or 0.5 mg (2 0.5 mg SUBCUT ONCE 08/29/24 09/24/24 History mg/3 mL) subcutaneous pen injector (Ozempic) escitalopram oxalate 5 mg tablet 15 mg PO .morning 09/24/24 09/24/24 History (Lexapro) Allergies/Adverse Reactions Allergy/AdvReac Type Severity Reaction Status Date / Time No Known Allergies Allergy Verified 09/24/24 08:31 Pertinent History/Comorbid Conditions* Medical History (Updated 08/29/24 @ 12:00 by Minh Folres MD) Nicotine dependence, cigarettes, uncomplicated Traumatic brain injury Chronic post-traumatic stress disorder (PTSD) Major depressive disorder, recurrent, moderate Psychiatric care Nicotine dependence Hasn't smoked in 1 and 1/2 days. Family History (Updated 07/03/20 @ 12:27 by Josy Mc LPN) Cancer Mother Social History Smoking and tobacco/nicotine status: current every day tobacco/nicotine user cigarettes Packs smoked per day: 0.5 Years cigarettes smoked: 40 Quit status (tobacco/nicotine): considering quitting Second hand smoke exposure: Yes Alcohol intake: former Year of sobriety/quit date alcohol: 2019 Substance/Drug Use: never Adopted: No Caregiver/support person: No Lives independently: Yes Household members: none Housing: House Marital status: Single Number of children: 0 Number of grandchildren: 0 Highest education level completed: 11th Grade Current occupational status: disabled Pets and animals: No Leisure activites: reading and other Leisure activities details: watch TV Sexually active: No Do you think of yourself as: Straight/Heterosexual Current gender identity: Male Marielena/Temple: None Special marielena needs: No Agree to transfusion: Yes Pertinent Exam Findings alert, oriented x 3, clear to auscultation bilaterally and regular rate & rhythm Recommendations Surgery/Procedure today Coding Level of Care Code Acute Code for Chg Fwd
[2024-09-27 06:04] VITALS: BP 159/130; PULSE 97; RESP 18; TEMP 36.3; O2SAT 97; BMI 23.9
[2024-09-27 06:19] LABS: Glucose Point of Care 169 mg/dL (70-110)
[2024-09-27] MEDS: sodium chloride 0.9% 1,000 ML 30 ML IV (06:31)
--- NOTE | 2024-09-27 06:43 | ANES.PREANE2 ---
Pre-Anesthetic Assessment Height/Weight: Height 1.78 m Weight 75.75 kg Temp Pulse Resp BP Pulse Ox O2 Del Method 97.3 F L 97 18 159/130 97 Room Air 09/27/24 06:04 09/27/24 06:04 09/27/24 06:04 09/27/24 06:04 09/27/24 06:04 09/27/24 06:04 Preop Diagnosis: need for screening colonoscopy Operation Date: 09/27/24 07:00 Proposed Procedures p Colonoscopy [id number] Z12.11(Not Applicable) - Minh Flores MD Familial anesthetic complications: none Was Beta Papa taken within 24 hours: N/A Was Clonidine taken within 24 hours: N/A Last intake: Intake Last Liquid Date 09/26/24 Last Liquid Time 23:00 Last Solid Date 09/25/24 Last Solid Time 20:00 Social Tobacco and No alcohol 1 PPD pack(s) per day Exam alert, oriented x 3, clear to auscultation bilaterally and regular rate & rhythm Airway Submandibular: within normal limits Cervical ROM: within normal limits Mallampati: Class II Dentition: full Comments: Comments: Missing right uppers History/ROS No significant history except as noted and No significant complaints Pulmonary Chronic Obstructive Pulmonary Disease and Sleep Apnea CV/HEM Hypertension None reported Hepatic None reported GI Gastroesophageal Reflux Disease Metabolic Diabetes Mellitus [facility] [place] None reported Neuropsych Anxiety Anesthetic Plan ASA status: 3 Anesthesia: MAC Risk of > 500 ml blood loss (7ml/kg in children): No Medications/Allergies Home Medications ?Medication ?Instructions ?Recorded ?Confirmed ?Last Taken ?Type budesonide-formoterol HFA 80 2 puff inhalation BID@07/30/19 09/24/24 09/27/24 04:30 History mcg-4.5 mcg/actuation aerosol inhaler (Symbicort) fluticasone propionate 50 2 spray intranasal BID@07/30/19 09/24/24 09/23/24 History mcg/actuation nasal spray,suspension (Flonase Allergy Relief) omeprazole 20 mg capsule,delayed 20 mg PO BID@ PRN Acid Reflux 07/30/19 09/24/24 09/23/24 History release albuterol sulfate 90 mcg/actuation 2 puff inhalation Q6H PRN short of 07/03/20 09/24/24 07/16/22 History aerosol inhaler breath evolocumab 140 mg/mL subcutaneous 140 mg SUBCUT .every 2 weeks 10/13/21 09/24/24 09/15/24 History pen injector (Kiki Lagunas) sildenafil 25 mg tablet (Viagra) 25 mg PO DAILY PRN Sexual Activity 01/21/22 09/24/24 07/16/22 History gabapentin 800 mg tablet 800 mg PO TID 07/13/22 09/24/24 09/26/24 History DME: Hospital bed and Mattress #1 ea 07/26/22 09/19/24 Unknown Rx tiotropium bromide 1.25 2 puff inhalation DAILY 03/01/23 09/24/24 09/27/24 04:30 History mcg/actuation mist for inhalation (Spiriva Respimat) losartan 100 1 tab PO DAILY 09/01/23 09/24/24 09/26/24 History mg-hydrochlorothiazide 12.5 mg tablet metformin 1,000 mg tablet 1,000 mg PO DAILY 03/14/24 09/24/24 09/26/24 History oxycodone 10 mg tablet 10 mg PO QID 03/14/24 09/24/24 09/26/24 History varenicline tartrate 1 mg tablet 1 mg PO BID 03/14/24 09/24/24 09/23/24 History (Chantix) atorvastatin 10 mg tablet 10 mg PO .hs cholesterol 06/04/24 09/24/24 09/26/24 History diazepam 10 mg tablet 10 mg PO BID PRN anxiety #60 tabs 08/29/24 09/24/24 09/26/24 Rx semaglutide 0.25 mg or 0.5 mg (2 0.5 mg SUBCUT ONCE 08/29/24 09/24/24 09/15/24 History mg/3 mL) subcutaneous pen injector (Ozempic) melatonin 3 mg tablet 3 mg PO BEDTIME PRN insomnia #30 09/03/24 09/24/24 09/23/24 Rx tabs methocarbamol 500 mg tablet 1,000 mg (2 x 500 mg) PO TID PRN 09/11/24 09/24/24 09/26/24 Rx spasms 14 days #84 tabs escitalopram oxalate 5 mg tablet 15 mg PO .morning 09/24/24 09/24/24 09/26/24 History (Lexapro) Allergies Allergy/AdvReac Type Severity Reaction Status Date / Time No Known Allergies Allergy Verified 09/24/24 08:31 Current Medications Generic Name Dose Route Start Last Admin Trade Name Deepika PRN Reason Stop Dose Admin Sodium Chloride 1,000 mls @ 30 mls/hr 09/27/24 06:30 09/27/24 06:31 Sodium Chloride 0.9% IV 30 mls/hr .Q24H CLARENCE Administration PFSH Anesthesia Medical History Nicotine dependence, cigarettes, uncomplicated Traumatic brain injury Chronic post-traumatic stress disorder (PTSD) Major depressive disorder, recurrent, moderate Psychiatric care Nicotine dependence Hasn't smoked in 1 and 1/2 days. Family History Mother Cancer Social History Smoking and tobacco/nicotine status: current every day tobacco/nicotine user cigarettes Packs smoked per day: 0.5 Years cigarettes smoked: 40 Quit status (tobacco/nicotine): considering quitting Second hand smoke exposure: Yes Alcohol intake: former Year of sobriety/quit date alcohol: 2019 Substance/Drug Use: never Adopted: No Caregiver/support person: No Lives independently: Yes Household members: none Housing: House Marital status: Single Number of children: 0 Number of grandchildren: 0 Highest education level completed: 11th Grade Current occupational status: disabled Pets and animals: No Leisure activites: reading and other Leisure activities details: watch TV Sexually active: No Do you think of yourself as: Straight/Heterosexual Current gender identity: Male Marielena/Moravian: None Special marielena needs: No Agree to transfusion: Yes Data Anesthesia Cardiac Studies: No Data to Display
[2024-09-27 07:28] VITALS: BP 131/83; PULSE 78; RESP 18; TEMP 36.6; O2SAT 92
[2024-09-27 07:52] VITALS: BP 128/104; PULSE 77; RESP 16; O2SAT 98
--- NOTE | 2024-09-27 08:19 | ANE.PACU2 ---
Inpatient post-anesthesia follow up: Airway intact: Yes Vital signs: Temperature 97.9 F Pulse Rate 77 Respiratory Rate 16 Blood Pressure 128/104 Pulse Oximetry 98 Oxygen Delivery Me thod Room Air Oxygen Flow Rate Fraction of Inspir ed Oxygen Hydration adequate: Yes Nausea and vomiting: No Pain level: 1 Mental status: Baseline
== END 2024-09-27 08:19 | disposition home or self-care (01) ==
PROVIDERS: PCP Family Medicine; Visit Provider Surgery
PROC: 0DJD8ZZ Inspection of Lower Intestinal Tract, Via Natural or Artificial Opening Endoscopic (ICD-10-PCS; CPT 45378; principal; 2024-09-27 07:00)
DX: Z12.11 Encounter for screening for malignant neoplasm of colon (principal); D12.5 Benign neoplasm of sigmoid colon; F17.210 Nicotine dependence, cigarettes, uncomplicated; I10 Essential (primary) hypertension; J44.9 Chronic obstructive pulmonary disease, unspecified; K21.9 Gastro-esophageal reflux disease without esophagitis; G47.30 Sleep apnea, unspecified; E11.9 Type 2 diabetes mellitus without complications; Z79.84 Long term (current) use of oral hypoglycemic drugs; Z79.899 Other long term (current) drug therapy; Z79.85 Long-term (current) use of injectable non-insulin antidiabetic drugs
CPT/HCPCS: 36416; 45380; 82962; 88305; J2704; J3490; J7030; J9999

== ENCOUNTER 2024-10-04 07:10 | Outpatient (CLI) | payer MEDICAID, MEDICARE, SELFPAY ==
[2024-08-15 16:05] VITALS: BMI 24.8
[2024-10-04 08:29] LABS: Basophils # 0.1 10^3/uL (0.0-0.1); Basophils % 0.7 %; Eosinophils # 0.2 10^3/uL (0.0-0.8); Eosinophils % 2.4 %; Hematocrit 45.1 % (37-53); Lymphocytes # 2.2 10^3/uL (0.8-4.8); Mean Corpuscular HGB Conc 33.7 g/dL (30-55); Mean Corpuscular Hemoglobin 33.9 pg (27-33); Mean Corpuscular Volume 100.4 fl (82-101); Monocytes # 1.3 10^3/uL (0.2-0.9); Monocytes % 18.3 %; Neutrophils # 3.38 10^3/uL (1.8-7.7); Neutrophils % 47.3 %; Nucleated Red Blood Cells % 0 %; Platelet Count 236 10^3/cmm (157-399); Red Blood Count 4.49 10^6/uL (3.85-5.65); Red Cell Distribution Width 16.2 % (12.1-15.1); White Blood Count 7.14 10^3/uL (3.29-11.43)
[2024-10-04 08:44] LABS: Bacteria Urine None Seen /hpf; RBC Urine 0-2 /hpf (0-2); Squamous Epithelial Cell Urine 0-5 /hpf (0-5); WBC Urine 0-5 /hpf (0-5)
[2024-10-04 08:52] LABS: Alanine Aminotransferase 17 U/L (0-41); Alkaline Phosphatase 96 U/L (40-130); Anion Gap 13.2 (5-19); Aspartate Amino Transferase 15 U/L (0-40); Blood Urea Nitrogen 12 mg/dL (6-20); Calcium 8.8 mg/dL (8.5-10.5); Carbon Dioxide 28 mmol/L (22-29); Chloride 99 mmol/L (98-107); Glucose 148 mg/dL (65-115); Osmolality Calculated 285 mOsm/kg (285-295); Potassium 4.2 mmol/L (3.5-5.1); Sodium 136 mmol/L (136-145); Total Bilirubin 0.3 mg/dL (0.15-1.2)
[2024-10-04 08:53] LABS: Add Urine Microscopic? YES; Bilirubin Urine Neg (Negative); Blood Urine Neg (Negative); Glucose Urine UA Norm (Normal); Ketones Urine Negative (Negative); Leukocyte Esterase Urine Negative (Negative); Nitrate Urine Negative (Negative); Protein Urine Trace (Negative); Specific Gravity, Urine 1.025 (1.005-1.030); Urine Appearance Clear (CLEAR); Urine Color Yellow (Yellow); Urobilinogen Urine Norm (Negative); pH Urine 5 (5-7)
== END 2024-10-04 07:11 | disposition home or self-care (01) ==
LOC: LAB 07:14
PROVIDERS: PCP Family Medicine; Visit Provider Orthopaedic Surgery
DX: M48.062 Spinal stenosis, lumbar region with neurogenic claudication (principal)
CPT/HCPCS: 36415; 80053; 81001; 85025

== ENCOUNTER → 2024-10-05 09:27 | Outpatient (BNVA) | payer MEDICAID, MEDICARE, SELFPAY ==
[2024-08-15 16:05] VITALS: BMI 24.8
== END ==
PROVIDERS: PCP Family Medicine; Visit Provider Family Medicine
DX: Z01.818 Encounter for other preprocedural examination (principal)
CPT/HCPCS: 93005

== ENCOUNTER 2024-10-15 05:45 | Day surgery (SDC) | payer MEDICAID, MEDICARE, SELFPAY ==
[2024-08-15 16:05] VITALS: BMI 24.8
[2024-10-15] VITALS (10 sets, daily range): BP systolic 111–139; BP diastolic 78–90; PULSE 81–88; RESP 16–23; TEMP 36.2–36.7; O2SAT 92–98; BMI 24.5
[2024-10-15] MEDS: sodium chloride 0.9% 1,000 ML 30 ML IV ×2 (06:15→07:04)
--- NOTE | 2024-10-15 06:16 | W.PM.OPSFHP ---
Same Day Surgery H&P Indication for Procedure/HPI DATE OF PROCEDURE: October 15, 2024 CHIEF COMPLAINT/INDICATIONFOR SURGICAL PROCEDURE: Back and leg pain PREOP DIAGNOSIS: Lumbar stenosis with neurogenic claudication PLANNED PROCEDURE: Operation Date: 10/15/24 07:00 Proposed Procedures p Lumbar Spine Decompression(Not Applicable) - Ayush Peterson, DO Medications/Allergies* Home Medications ?Medication ?Instructions ?Recorded ?Confirmed ?Type budesonide-formoterol HFA 80 2 puff inhalation BID@07/30/19 10/11/24 History mcg-4.5 mcg/actuation aerosol inhaler (Symbicort) fluticasone propionate 50 2 spray intranasal BID@07/30/19 10/11/24 History mcg/actuation nasal spray,suspension (Flonase Allergy Relief) omeprazole 20 mg capsule,delayed 20 mg PO BID@ PRN Acid Reflux 07/30/19 10/11/24 History release albuterol sulfate 90 mcg/actuation 2 puff inhalation Q6H PRN short of 07/03/20 10/11/24 History aerosol inhaler breath evolocumab 140 mg/mL subcutaneous 140 mg SUBCUT .every 2 weeks 10/13/21 10/11/24 History pen injector (Repatha SureClick) sildenafil 25 mg tablet (Viagra) 25 mg PO DAILY PRN Sexual Activity 01/21/22 10/11/24 History gabapentin 800 mg tablet 800 mg PO TID 07/13/22 10/11/24 History tiotropium bromide 1.25 2 puff inhalation DAILY 03/01/23 10/11/24 History mcg/actuation mist for inhalation (Spiriva Respimat) losartan 100 1 tab PO DAILY 09/01/23 10/11/24 History mg-hydrochlorothiazide 12.5 mg tablet metformin 1,000 mg tablet 1,000 mg PO DAILY 03/14/24 10/11/24 History oxycodone 10 mg tablet 10 mg PO QID 03/14/24 10/11/24 History varenicline tartrate 1 mg tablet 1 mg PO BID 03/14/24 10/11/24 History (Chantix) atorvastatin 10 mg tablet 10 mg PO .hs cholesterol 06/04/24 10/11/24 History semaglutide 0.25 mg or 0.5 mg (2 0.5 mg SUBCUT ONCE 08/29/24 10/11/24 History mg/3 mL) subcutaneous pen injector (Ozempic) escitalopram oxalate 5 mg tablet 15 mg PO .morning 09/24/24 10/11/24 History (Lexapro) Allergies/Adverse Reactions Allergy/AdvReac Type Severity Reaction Status Date / Time No Known Allergies Allergy Verified 10/11/24 08:30 Pertinent History/Comorbid Conditions* Medical History (Updated 08/29/24 @ 12:00 by Minh Flores MD) Nicotine dependence, cigarettes, uncomplicated Traumatic brain injury Chronic post-traumatic stress disorder (PTSD) Major depressive disorder, recurrent, moderate Psychiatric care Nicotine dependence Hasn't smoked in 1 and 1/2 days. Family History (Updated 07/03/20 @ 12:27 by Josy Mc LPN) Cancer Mother Social History Smoking and tobacco/nicotine status: current every day tobacco/nicotine user cigarettes Packs smoked per day: 0.5 Years cigarettes smoked: 40 Quit status (tobacco/nicotine): considering quitting Second hand smoke exposure: Yes Alcohol intake: former Year of sobriety/quit date alcohol: 2019 Substance/Drug Use: never Adopted: No Caregiver/support person: No Lives independently: Yes Household members: none Housing: House Marital status: Single Number of children: 0 Number of grandchildren: 0 Highest education level completed: 11th Grade Current occupational status: disabled Pets and animals: No Leisure activites: reading and other Leisure activities details: watch TV Sexually active: No Do you think of yourself as: Straight/Heterosexual Current gender identity: Male Marielena/Scientology: None Special marielena needs: No Agree to transfusion: Yes Pertinent Exam Findings oriented x 3 and procedure specific exam findings Recommendations Surgery/Procedure today Coding Level of Care Code Acute Code for Chg Fwd
[2024-10-15 06:37] LABS: Glucose Point of Care 223 mg/dL (70-110)
--- NOTE | 2024-10-15 07:05 | ANES.PREANE2 ---
Pre-Anesthetic Assessment Height/Weight: Height 1.78 m Weight 77.564 kg O2 Del Method Room Air 10/15/24 06:17 Preop Diagnosis: Lumbar stenosis with neurogenic claudication Operation Date: 10/15/24 07:00 Proposed Procedures p Lumbar Spine Decompression(Not Applicable) - Ayush Peterson DO Last intake: Intake Last Liquid Date 10/14/24 Last Liquid Time 20:00 Last Solid Date 10/14/24 Last Solid Time 20:00 Social Tobacco and No alcohol Exam alert, oriented x 3, clear to auscultation bilaterally and regular rate & rhythm Airway Submandibular: within normal limits Cervical ROM: within normal limits Mallampati: Class II Pulmonary Chronic Obstructive Pulmonary Disease CV/HEM Hypertension Metabolic Diabetes Mellitus Anesthetic Plan ASA status: 3 Anesthesia: General Medications/Allergies Home Medications ?Medication ?Instructions ?Recorded ?Confirmed ?Last Taken ?Type budesonide-formoterol HFA 80 2 puff inhalation BID@07/30/19 10/15/24 09/27/24 04:30 History mcg-4.5 mcg/actuation aerosol inhaler (Symbicort) fluticasone propionate 50 2 spray intranasal BID@07/30/19 10/15/24 09/23/24 History mcg/actuation nasal spray,suspension (Flonase Allergy Relief) omeprazole 20 mg capsule,delayed 20 mg PO BID@ PRN Acid Reflux 07/30/19 10/15/24 09/23/24 History release albuterol sulfate 90 mcg/actuation 2 puff inhalation Q6H PRN short of 07/03/20 10/15/24 07/16/22 History aerosol inhaler breath evolocumab 140 mg/mL subcutaneous 140 mg SUBCUT .every 2 weeks 10/13/21 10/15/24 09/28/24 History pen injector (Repathregina Clarkick) sildenafil 25 mg tablet (Viagra) 25 mg PO DAILY PRN Sexual Activity 01/21/22 10/15/24 07/16/22 History gabapentin 800 mg tablet 800 mg PO TID 07/13/22 10/15/24 10/14/24 History DME: Hospital bed and Mattress #1 ea 07/26/22 10/15/24 Unknown Rx tiotropium bromide 1.25 2 puff inhalation DAILY 03/01/23 10/15/2409/27/25 04:30 History mcg/actuation mist for inhalation (Spiriva Respimat) losartan 100 1 tab PO DAILY 09/01/23 10/15/24 10/14/24 History mg-hydrochlorothiazide 12.5 mg tablet metformin 1,000 mg tablet 1,000 mg PO DAILY 03/14/24 10/15/24 10/11/24 History oxycodone 10 mg tablet 10 mg PO QID 03/14/24 10/15/24 10/14/24 History varenicline tartrate 1 mg tablet 1 mg PO BID 03/14/24 10/15/24 10/14/24 History (Chantix) atorvastatin 10 mg tablet 10 mg PO .hs cholesterol 06/04/24 10/15/24 10/14/24 History diazepam 10 mg tablet 10 mg PO BID PRN anxiety #60 tabs 08/29/24 10/15/24 09/26/24 Rx semaglutide 0.25 mg or 0.5 mg (2 0.5 mg SUBCUT ONCE 08/29/24 10/15/24 09/28/24 History mg/3 mL) subcutaneous pen injector (Ozempic) melatonin 3 mg tablet 3 mg PO BEDTIME PRN insomnia #30 09/03/24 10/15/24 09/23/24 Rx tabs methocarbamol 500 mg tablet 1,000 mg (2 x 500 mg) PO TID PRN 09/11/24 10/15/24 09/26/24 Rx spasms 14 days #84 tabs escitalopram oxalate 5 mg tablet 15 mg PO .morning 09/24/24 10/15/24 10/14/24 History (Lexapro) Allergies Allergy/AdvReac Type Severity Reaction Status Date / Time No Known Allergies Allergy Verified 10/11/24 08:30 Current Medications Generic Name Dose Route Start Last Admin Trade Name Freq PRN Reason Stop Dose Admin Sodium Chloride 1,000 mls @ 30 mls/hr 10/15/24 07:00 10/15/24 07:04 Sodium Chloride 0.9% IV 30 mls/hr .Q24H CLARENCE Administration PFSH Anesthesia Medical History Nicotine dependence, cigarettes, uncomplicated Traumatic brain injury Chronic post-traumatic stress disorder (PTSD) Major depressive disorder, recurrent, moderate Psychiatric care Nicotine dependence Hasn't smoked in 1 and 1/2 days. Family History Mother Cancer Social History Smoking and tobacco/nicotine status: current every day tobacco/nicotine user cigarettes Packs smoked per day: 0.5 Years cigarettes smoked: 40 Quit status (tobacco/nicotine): considering quitting Second hand smoke exposure: Yes Alcohol intake: former Year of sobriety/quit date alcohol: 2019 Substance/Drug Use: never Adopted: No Caregiver/support person: No Lives independently: Yes Household members: none Housing: House Marital status: Single Number of children: 0 Number of grandchildren: 0 Highest education level completed: 11th Grade Current occupational status: disabled Pets and animals: No Leisure activites: reading and other Leisure activities details: watch TV Sexually active: No Do you think of yourself as: Straight/Heterosexual Current gender identity: Male Marielena/Taoism: None Special marielena needs: No Agree to transfusion: Yes Data Anesthesia Cardiac Studies: No Data to Display
[2024-10-15] MEDS: ceFAZolin 2,000 mg SDV 2000 MG IVP (07:20)
[2024-10-15] MEDS: lidocaine-epi 1% 20 mL INJ INJECTION (07:27)
[2024-10-15] MEDS: fentaNYL 50 mcg/mL INJ 2mL IVP (08:17)
--- NOTE | 2024-10-15 08:31 | PM.OP ---
Operative Report Date of procedure: October 15, 2024 Pre-op diagnosis: Lumbar stenosis with neurogenic claudication Post-op diagnosis: same Procedure done: L2-3 laminectomy with partial facetectomy Surgeon: Ayush Peterson DO Estimated blood loss (mL): 5 Procedure: L2-3 laminectomy with partial facetectomy Patient is brought to the operative suite. After undergoing anesthesia they are placed in the prone position. All areas of impingement are well padded. Patient is then prepped and draped in the normal sterile fashion. A skin incision is made over the L2/3 level. This is confirmed under c-arm guidance. A series of dilators are passed and the tubular retractor is docked on the L2 lamina. A bovie is used to clear the soft tissue off the lamina and the L 2/3 facet joint. A high speed josselyn is then used to perform the laminectomy and take down the medial aspect of the L 2/3 facet joint. A kerrison rongeure was then used to take down the remaining lamina and smooth the edge of the laminectomy up to the point where the ligamentum flavum attaches. Attention was then brought to the medial aspect of the facet joint. The remaining medial aspect of the superior and inferior aspect of the facet joint were taken down with the kerrison from the pedicle of L2 to L 3. The facet joint had significant hypertrophy. Attention was then brought to the Ligamentum Flavum. The ligament was taken down from the lamina of L2 to L3 and out medially to the remaining facet joint. The ligament was thick. The dura was then exposed. The dura was in good repair. The L2 nerve was then traced with a curette out the L2/3 foramen and found to be adequately decompressed. The L3 nerve was traced with a curette around the L3 pedicle. The lateral recess was opened with a kerrison helping to further decompress the L3 nerve. Wound is then irrigated copiously with saline and surgiflo is used to stop any bleeding. The tubular retractor is removed and the wound is closed with vicryl and monocryl suture. Glue is then used to protect the wound. A sterile dressing is then placed. Patient was then placed in the supine position and transferred to the PACU in stable condition.
[2024-10-15] MEDS: oxyCODONE-APAP 5-325 mg Tablet 1 TAB PO (09:11)
--- NOTE | 2024-10-15 13:12 | P.ANESPOST_ITS ---
Inpatient post-anesthesia follow up: Vital signs: Temperature 97.5 F Pulse Rate 85 Respiratory Rate 18 Blood Pressure 137/88 Pulse Oximetry 98 Oxygen Delivery Me thod Room Air Oxygen Flow Rate Fraction of Inspir ed Oxygen Hydration adequate: Yes Nausea and vomiting: No Pain level: Con trolled Mental status: Baseline
== END 2024-10-15 10:58 | disposition home or self-care (01) ==
PROVIDERS: PCP Family Medicine; Visit Provider Orthopaedic Surgery
PROC: (CPT 63005; principal; 2024-10-15 07:00)
DX: M48.062 Spinal stenosis, lumbar region with neurogenic claudication (principal); I10 Essential (primary) hypertension; J44.9 Chronic obstructive pulmonary disease, unspecified; E11.9 Type 2 diabetes mellitus without complications; Z79.899 Other long term (current) drug therapy; Z79.85 Long-term (current) use of injectable non-insulin antidiabetic drugs; Z79.84 Long term (current) use of oral hypoglycemic drugs; F17.210 Nicotine dependence, cigarettes, uncomplicated; Z87.820 Personal history of traumatic brain injury
CPT/HCPCS: 63047; 36416; 72100; 76000; 82962; J0690; J1100; J1171; J2250; J2704; J2710; J3010; J3490; J7030; J9999

== ENCOUNTER → 2024-10-30 07:51 | Outpatient (BNVA) | payer MEDICARE, MEDICAID, SELFPAY ==
[2024-08-15 16:05] VITALS: BMI 24.8
== END ==
PROVIDERS: PCP Family Medicine; Visit Provider Orthopaedic Surgery
DX: M25.562 Pain in left knee (principal); Z98.890 Other specified postprocedural states
CPT/HCPCS: 99024

== ENCOUNTER → 2024-10-31 10:07 | Outpatient (BNVA) | payer MEDICARE, MEDICAID, SELFPAY ==
[2024-08-15 16:05] VITALS: BMI 24.8
== END ==
PROVIDERS: PCP Family Medicine; Visit Provider Physician Assistant
DX: M25.562 Pain in left knee (principal); S89.92XA Unspecified injury of left lower leg, initial encounter; M17.12 Unilateral primary osteoarthritis, left knee; X58.XXXA Exposure to other specified factors, initial encounter
CPT/HCPCS: 73560; 73565

== ENCOUNTER 2024-10-31 15:09 | Outpatient (CLI) | payer MEDICARE, MEDICAID, SELFPAY ==
[2024-08-15 16:05] VITALS: BMI 24.8
== END 2024-10-31 15:10 | disposition home or self-care (01) ==
LOC: SPT 15:10
PROVIDERS: PCP Family Medicine; Visit Provider Physician Assistant
DX: Z46.89 Encounter for fitting and adjustment of other specified devices (principal); M25.562 Pain in left knee
CPT/HCPCS: 20610; 97760; J3301; J9999; L1812

== ENCOUNTER 2024-11-12 05:53 | Day surgery (SDC) | payer MEDICARE, MEDICAID, SELFPAY ==
[2024-08-15 16:05] VITALS: BMI 24.8
[2024-11-12] VITALS (12 sets, daily range): BP systolic 92–145; BP diastolic 58–92; PULSE 78–102; RESP 10–21; TEMP 36.1–36.3; O2SAT 93–98; BMI 24.7
[2024-11-12 06:25] LABS: Glucose Point of Care 191 mg/dL (70-110)
--- NOTE | 2024-11-12 06:31 | W.PM.OPSFHP ---
Same Day Surgery H&P Indication for Procedure/HPI DATE OF PROCEDURE: November 12, 2024 CHIEF COMPLAINT/INDICATIONFOR SURGICAL PROCEDURE: right thigh mass PREOP DIAGNOSIS: right thigh mass PLANNED PROCEDURE: Operation Date: 11/12/24 07:00 Proposed Procedures p excision right thigh soft tissue mass(Right) - Minh Flores MD Medications/Allergies* Home Medications ?Medication ?Instructions ?Recorded ?Confirmed ?Type budesonide-formoterol HFA 80 2 puff inhalation BID@07/30/19 11/08/24 History mcg-4.5 mcg/actuation aerosol inhaler (Symbicort) fluticasone propionate 50 2 spray intranasal BID@07/30/19 11/08/24 History mcg/actuation nasal spray,suspension (Flonase Allergy Relief) omeprazole 20 mg capsule,delayed 20 mg PO BID@ PRN Acid Reflux 07/30/19 11/08/24 History release albuterol sulfate 90 mcg/actuation 2 puff inhalation Q6H PRN short of 07/03/20 11/08/24 History aerosol inhaler breath evolocumab 140 mg/mL subcutaneous 140 mg SUBCUT .every 2 weeks 10/13/21 11/08/24 History pen injector (Repatha SureClick) sildenafil 25 mg tablet (Viagra) 25 mg PO DAILY PRN Sexual Activity 01/21/22 11/08/24 History gabapentin 800 mg tablet 800 mg PO TID 07/13/22 11/08/24 History tiotropium bromide 1.25 2 puff inhalation DAILY 03/01/23 11/08/24 History mcg/actuation mist for inhalation (Spiriva Respimat) losartan 100 1 tab PO DAILY 09/01/23 11/08/24 History mg-hydrochlorothiazide 12.5 mg tablet metformin 1,000 mg tablet 1,000 mg PO DAILY 03/14/24 11/08/24 History varenicline tartrate 1 mg tablet 1 mg PO BID 03/14/24 11/08/24 History (Chantix) atorvastatin 10 mg tablet 10 mg PO .hs cholesterol 06/04/24 11/08/24 History semaglutide 0.25 mg or 0.5 mg (2 0.5 mg SUBCUT ONCE 08/29/24 11/08/24 History mg/3 mL) subcutaneous pen injector (Ozempic) escitalopram oxalate 5 mg tablet 15 mg PO .morning 09/24/24 11/08/24 History (Lexapro) Allergies/Adverse Reactions Allergy/AdvReac Type Severity Reaction Status Date / Time No Known Allergies Allergy Verified 11/08/24 12:49 Pertinent History/Comorbid Conditions* Medical History (Updated 10/31/24 @ 11:13 by ZINA Mahmood) Nicotine dependence, cigarettes, uncomplicated Traumatic brain injury Chronic post-traumatic stress disorder (PTSD) Major depressive disorder, recurrent, moderate Psychiatric care Nicotine dependence Hasn't smoked in 1 and 1/2 days. Family History (Updated 07/03/20 @ 12:27 by Josy Mc LPN) Cancer Mother Social History Smoking and tobacco/nicotine status: current every day tobacco/nicotine user cigarettes Packs smoked per day: 0.5 Years cigarettes smoked: 40 Quit status (tobacco/nicotine): considering quitting Second hand smoke exposure: Yes Alcohol intake: former Year of sobriety/quit date alcohol: 2019 Substance/Drug Use: never Adopted: No Caregiver/support person: No Lives independently: Yes Household members: none Housing: House Marital status: Single Number of children: 0 Number of grandchildren: 0 Highest education level completed: 11th Grade Current occupational status: disabled Pets and animals: No Leisure activites: reading and other Leisure activities details: watch TV Sexually active: No Do you think of yourself as: Straight/Heterosexual Current gender identity: Male Marielena/Jew: None Special marielena needs: No Agree to transfusion: Yes Pertinent Exam Findings alert, oriented x 3, clear to auscultation bilaterally, regular rate & rhythm and procedure specific exam findings Recommendations Surgery/Procedure today Coding Level of Care Code Acute Code for Chg Fwd
[2024-11-12] MEDS: sodium chloride 0.9% 1,000 ML 30 ML IV (06:43)
[2024-11-12] MEDS: ceFAZolin 2,000 mg SDV 2000 MG IVP (07:01)
--- NOTE | 2024-11-12 07:13 | ANES.PREANE2 ---
Pre-Anesthetic Assessment Height/Weight: Height 1.78 m Weight 78.018 kg Temp Pulse Resp BP Pulse Ox O2 Del Method 97 F L 102 H 18 141/92 97 Room Air 11/12/24 06:24 11/12/24 06:24 11/12/24 06:24 11/12/24 06:24 11/12/24 06:24 11/12/24 06:24 Preop Diagnosis: right thigh mass Operation Date: 11/12/24 07:00 Proposed Procedures p excision right thigh soft tissue mass(Right) - Minh Flores MD Last intake: Intake Last Liquid Date 11/11/24 Last Liquid Time 22:00 Last Solid Date 11/11/24 Last Solid Time 17:00 Airway Submandibular: within normal limits Cervical ROM: within normal limits Mallampati: Class II Pulmonary Chronic Obstructive Pulmonary Disease and Cough CV/HEM Hypertension GI Gastroesophageal Reflux Disease Metabolic Diabetes Mellitus and Hyperlipidemia Neuropsych Anxiety and Depression Anesthetic Plan ASA status: 3 Anesthesia: Choice Medications/Allergies Home Medications ?Medication ?Instructions ?Recorded ?Confirmed ?Last Taken ?Type budesonide-formoterol HFA 80 2 puff inhalation BID@07/30/19 11/08/24 11/11/24 History mcg-4.5 mcg/actuation aerosol inhaler (Symbicort) fluticasone propionate 50 2 spray intranasal BID@07/30/19 11/08/24 11/08/24 History mcg/actuation nasal spray,suspension (Flonase Allergy Relief) omeprazole 20 mg capsule,delayed 20 mg PO BID@ PRN Acid Reflux 07/30/19 11/08/24 11/08/24 History release albuterol sulfate 90 mcg/actuation 2 puff inhalation Q6H PRN short of 07/03/20 11/08/24 3 Days Ago History aerosol inhaler breath ~11/05/24 evolocumab 140 mg/mL subcutaneous 140 mg SUBCUT .every 2 weeks 10/13/21 11/08/24 11/01/24 History pen injector (Repatha Eduardoick) sildenafil 25 mg tablet (Viagra) 25 mg PO DAILY PRN Sexual Activity 01/21/22 11/08/24 1 Month Ago History ~10/09/24 gabapentin 800 mg tablet 800 mg PO TID 07/13/22 11/08/24 11/11/24 History DME: Hospital bed and Mattress #1 ea 07/26/22 10/31/24 11/11/24 Rx tiotropium bromide 1.25 2 puff inhalation DAILY 03/01/23 11/08/24 11/11/24 History mcg/actuation mist for inhalation (Spiriva Respimat) losartan 100 1 tab PO DAILY 09/01/23 11/08/24 11/11/24 History mg-hydrochlorothiazide 12.5 mg tablet metformin 1,000 mg tablet 1,000 mg PO DAILY 03/14/24 11/08/24 11/11/24 History varenicline tartrate 1 mg tablet 1 mg PO BID 03/14/24 11/08/24 11/11/24 History (Chantix) atorvastatin 10 mg tablet 10 mg PO .hs cholesterol 06/04/24 11/08/24 11/11/24 History diazepam 10 mg tablet 10 mg PO BID PRN anxiety #60 tabs 08/29/24 11/08/24 11/12/24 Rx semaglutide 0.25 mg or 0.5 mg (2 0.5 mg SUBCUT ONCE 08/29/24 11/08/24 11/01/24 History mg/3 mL) subcutaneous pen injector (Ozempic) melatonin 3 mg tablet 3 mg PO BEDTIME PRN insomnia #30 09/03/24 11/08/24 3 Days Ago Rx tabs ~11/05/24 escitalopram oxalate 5 mg tablet 15 mg PO .morning 09/24/24 11/08/24 11/11/24 History (Lexapro) methocarbamol 500 mg tablet 1,000 mg (2 x 500 mg) PO TID PRN 10/30/24 11/08/24 11/11/24 Rx spasms 14 days #84 tabs oxycodone 10 mg tablet 10 mg PO Q4H PRN pain 7 days #42 10/30/24 11/12/24 11/11/24 Rx tabs left knee economy brace #1 ea 10/31/24 10/31/24 11/11/24 Rx Allergies Allergy/AdvReac Type Severity Reaction Status Date / Time No Known Allergies Allergy Verified 11/08/24 12:49 Current Medications Generic Name Dose Route Start Last Admin Trade Name Freq PRN Reason Stop Dose Admin Sodium Chloride 1,000 mls @ 30 mls/hr 11/12/24 06:00 11/12/24 06:43 Sodium Chloride 0.9% IV 30 mls/hr .Q24H CLARENCE Administration PFSH Anesthesia Medical History Nicotine dependence, cigarettes, uncomplicated Traumatic brain injury Chronic post-traumatic stress disorder (PTSD) Major depressive disorder, recurrent, moderate Psychiatric care Nicotine dependence Hasn't smoked in 1 and 1/2 days. Family History Mother Cancer Social History Smoking and tobacco/nicotine status: current every day tobacco/nicotine user cigarettes Packs smoked per day: 0.5 Years cigarettes smoked: 40 Quit status (tobacco/nicotine): considering quitting Second hand smoke exposure: Yes Alcohol intake: former Year of sobriety/quit date alcohol: 2019 Substance/Drug Use: never Adopted: No Caregiver/support person: No Lives independently: Yes Household members: none Housing: House Marital status: Single Number of children: 0 Number of grandchildren: 0 Highest education level completed: 11th Grade Current occupational status: disabled Pets and animals: No Leisure activites: reading and other Leisure activities details: watch TV Sexually active: No Do you think of yourself as: Straight/Heterosexual Current gender identity: Male Marielena/Congregational: None Special marielena needs: No Agree to transfusion: Yes
[2024-11-12] MEDS: BUPivacaine 0.25% INJ 10 mL 5 ML INJECTION (07:37)
[2024-11-12] MEDS: lidocaine-epi 1% 20 mL INJ 5 ML INJECTION (07:38)
[2024-11-12] MEDS: fentaNYL 50 mcg/mL INJ 2mL IVP (08:07)
--- NOTE | 2024-11-12 08:36 | PM.OP ---
Operative Report Date of procedure: November 12, 2024 Pre-op diagnosis: Right thigh mass Post-op diagnosis: Same Post-op findings: 4 x 3 x 2 cm mass of the right thigh Procedure done: excision of right thigh mass, subcutaneous Specimens removed/disposition: Right thigh mass Surgeon: Minh Flores MD Trench Digging Machine Operator: EULALIA OR Staff Estimated blood loss: 5 Complications: non apparent Brief History: 59-year-old male with a right thigh mass who presents for excision. All risk benefits were discussed and documented in my preop note. Procedure: Patient was brought into the OR, he was placed in a supine position. General anesthesia was given. The right thigh was prepped and draped in the usual sterile fashion. A timeout was conducted. Local anesthesia was infiltrated. I made a 4 cm incision overlying the lesion in the previously marked area. The incision was deepened to the subcutaneous tissue, a lipomatous lesion was identified. The lesion was circumferentially dissected with combination of blunt dissection and electrocautery. The lesion was completely excised and passed to the scrub table to be sent to pathology. No residual lesion was noted on the wound. Hemostasis was achieved. The wound was irrigated. The wound was closed in layers using #3-0 Vicryl for the subcutaneous tissue #4 Monocryl for the skin. At the end of the procedure all counts were correct, the patient tolerated well the procedure was transferred to the PACU in stable condition
--- NOTE | 2024-11-12 12:32 | ANE.PACU2 ---
Inpatient post-anesthesia follow up: Airway intact: Yes Vital signs: Temperature 97.0 F Pulse Rate 80 Respiratory Rate 17 Blood Pressure 121/76 Pulse Oximetry 94 Oxygen Delivery Me thod Room Air Oxygen Flow Rate 6 Fraction of Inspir ed Oxygen Hydration adequate: Yes Nausea and vomiting: No Pain level: managed Mental status: Baseline (appropriate for stage of emergence )
== END 2024-11-12 09:25 | disposition home or self-care (01) ==
PROVIDERS: PCP Family Medicine; Visit Provider Surgery
PROC: (CPT 27337; principal; 2024-11-12 07:00)
DX: D17.23 Benign lipomatous neoplasm of skin and subcutaneous tissue of right leg (principal); J44.9 Chronic obstructive pulmonary disease, unspecified; I10 Essential (primary) hypertension; K21.9 Gastro-esophageal reflux disease without esophagitis; E78.5 Hyperlipidemia, unspecified; E11.9 Type 2 diabetes mellitus without complications; F17.210 Nicotine dependence, cigarettes, uncomplicated; Z79.899 Other long term (current) drug therapy; Z79.84 Long term (current) use of oral hypoglycemic drugs; Z79.85 Long-term (current) use of injectable non-insulin antidiabetic drugs
CPT/HCPCS: 27337; 36416; 82962; 88304; 88307; J0131; J0690; J1100; J2250; J2371; J2405; J2704; J3010; J3490; J7030; J9999

== ENCOUNTER → 2024-11-27 10:38 | Outpatient (BNVA) | payer MEDICARE, MEDICAID, SELFPAY ==
[2024-08-15 16:05] VITALS: BMI 24.8
== END ==
PROVIDERS: PCP Family Medicine; Visit Provider Orthopaedic Surgery
DX: Z98.890 Other specified postprocedural states (principal)
CPT/HCPCS: 99024

== ENCOUNTER → 2024-11-28 09:59 | Outpatient (BNVA) | payer MEDICARE, MEDICAID, SELFPAY ==
[2024-08-15 16:05] VITALS: BMI 24.8
== END ==
PROVIDERS: PCP Family Medicine; Visit Provider Surgery
DX: M79.89 Other specified soft tissue disorders (principal); R22.0 Localized swelling, mass and lump, head
CPT/HCPCS: 99024

== ENCOUNTER → 2024-12-05 13:32 | Outpatient (BNVA) | payer MEDICARE, MEDICAID, SELFPAY ==
[2024-08-15 16:05] VITALS: BMI 24.8
== END ==
PROVIDERS: PCP Family Medicine; Visit Provider Physician Assistant
DX: S89.92XA Unspecified injury of left lower leg, initial encounter (principal); M23.302 Other meniscus derangements, unspecified lateral meniscus, unspecified knee; M17.12 Unilateral primary osteoarthritis, left knee; X58.XXXA Exposure to other specified factors, initial encounter
CPT/HCPCS: 99213

== ENCOUNTER 2024-12-07 13:03 | Outpatient (CLI) | payer MEDICARE, MEDICAID, SELFPAY ==
[2024-08-15 16:05] VITALS: BMI 24.8
--- NOTE | 2024-12-07 13:45 | MR_ITS ---
WS: [id number] MRI LEFT KNEE HISTORY: left knee injury COMPARISON: Radiograph 10/31/2024 Anterior cruciate ligament: Intact. There is a small amount of fluid adjacent to the distal ACL but the ACL is intact. Within the fluid is a 5 mm intra-articular body. Potential for too small intra-articular bodies versus osteophytes. Posterior cruciate ligament: Intact. Medial collateral ligament: Intact. Posterior lateral corner structures: Intact. Medial menisci: Intact. Normal signal, size and shape. Lateral meniscus: Intact. Normal signal, size and shape. Extensor mechanism: Distal quadriceps tendon and patellar tendons are intact. Fluid and soft tissue: No joint effusion. No Stevenson's cyst. Osseous and articular structures: Patellofemoral compartment: Normal. Medial compartment: Normal. Lateral compartment: Very mild superficial fissuring of the cartilage. No marrow edema. Incidental note is made of a serpiginous lesion in the distal femoral diaphysis which is incompletely included on this examination. Most consistent with a bone infarct. MR/MR knee LT wo con* [id number] IMPRESSION: 1. No ACL or meniscal tear. 2. There is a small amount of fluid adjacent to the distal ACL extending into the intercondylar notch. There does appear to be a 5 mm loose body or osteophyt e in the intercondylar notch surrounded by the fluid. There may be a separate s maller adjacent loose body or osteophyte from the tibial spine. 3. Incompletely visualized bone infarct in the distal LEFT femur diaphysis.
== END 2024-12-07 13:04 | disposition home or self-care (01) ==
LOC: RAD 13:04
PROVIDERS: PCP Family Medicine; Visit Provider Physician Assistant
DX: S89.92XA Unspecified injury of left lower leg, initial encounter (principal); M17.9 Osteoarthritis of knee, unspecified; Z04.3 Encounter for examination and observation following other accident; X58.XXXA Exposure to other specified factors, initial encounter
CPT/HCPCS: 73721

== ENCOUNTER → 2025-01-08 08:34 | Outpatient (BNVA) | payer OTHER, MEDICAID, SELFPAY ==
[2024-08-15 16:05] VITALS: BMI 24.8
== END ==
PROVIDERS: PCP Family Medicine; Visit Provider Student in an Organized Health Care Education/Training Program
DX: M23.42 Loose body in knee, left knee (principal); M94.262 Chondromalacia, left knee
CPT/HCPCS: 99214

== ENCOUNTER 2025-02-28 12:20 | Outpatient (CLI) | payer OTHER, MEDICAID, SELFPAY ==
[2024-08-15 16:05] VITALS: BMI 24.8
--- NOTE | 2025-02-28 12:23 | CT_ITS ---
WS: [id number] CT chest wo con [id number] HISTORY: GROUND GLASS OPACITY TECHNIQUE: Axial imaging performed through the thorax. Coronal and sagittal reformats are submitted. All CT scans at [facility] use at least one of these dose optimization techniques: automated exposure control; mA and/or kV adjustment per patient size (includes targeted exams where dose is matched to clinical indication); or iterative reconstruction. CONTRAST: None DLP: 309.08 mGy.cm COMPARISON: 06/08/2024 Lungs and central airway: Interval resolution of the groundglass opacifications described in the LEFT lung since the prior study. 2 LEFT lower lobe pulmonary nodules are reidentified. 1 of these nodules has nearly completely resolved. The other measures 5 mm. No change since 09/14/2022. Pleura: Normal. No pleural effusion. Heart and pericardium: Normal size heart with no pericardial effusion. Mediastinum and melissa: No mediastinum or hilar adenopathy. Vessels: Normal size aortic and pulmonary artery. No coronary artery calcifications. Chest wall and lower neck: No soft tissue masses. Degenerative air in the sternal clavicular joints. Upper abdomen: No adrenal mass. Visualized gallbladder is negative. Osseous structures: No destructive process. CT/CT chest wo con [id number] IMPRESSION: 1. Complete resolution of the groundglass opacifications in the LEFT lobe sinc e the prior study. 2. LEFT lower lobe pulmonary nodules reidentified. 1 of these nodules has near ly completely resolved and the other is stable since 09/14/2022. Recommend retur n to low dose lung screening CT. 3. No mediastinal or hilar adenopathy.
--- NOTE | 2025-02-28 12:23 | CT_ITS ---
WS: [id number] CT HEAD NONCONTRAST HISTORY: HEADACHE/IMPAIRMENT OF BALANCE/HX OF TBI TECHNIQUE: Contiguous axial imaging performed through the brain. Bone and soft tissue windows. Sagittal and coronal reformats reviewed. All CT scans at [facility] use at least one of these dose optimization techniques: automated exposure control; mA and/or kV adjustment per patient size (includes targeted exams where dose is matched to clinical indication); or iterative reconstruction. DLP: 1090.50 mGy.cm COMPARISON: None available. No acute intracranial hemorrhage, midline shift or mass effect. Very mild atrophy and small vessel disease. Small lacunar infarct in the LEFT cerebellum. Ventricles: Normal size with no hydrocephalus. No inferior displacement of the cerebellar tonsils. Paranasal sinuses: Postsurgical plate and screw fixation over the LEFT facial bones. Sinuses are negative for acute process. Mastoid air cells: Well pneumatized. Calvarium and scalp: Skull is intact with no soft tissue edema or swelling. CT/CT head wo con* [id number] IMPRESSION: 1. No acute intracranial hemorrhage or edema. 2. Small remote lacunar infarct in the LEFT cerebellum. 3. No large territory infarct. 4. Mild small vessel disease. 5. Prior postoperative repair LEFT facial bones.
== END 2025-02-28 12:21 | disposition home or self-care (01) ==
LOC: RAD 12:21
PROVIDERS: PCP Family Medicine; Visit Provider Family Medicine
DX: R91.8 Other nonspecific abnormal finding of lung field (principal); I67.89 Other cerebrovascular disease; R51.9 Headache, unspecified; Z87.820 Personal history of traumatic brain injury
CPT/HCPCS: 70450; 71250

== ENCOUNTER 2025-04-05 06:45 | Outpatient (CLI) | payer OTHER, MEDICAID, SELFPAY ==
[2024-08-15 16:05] VITALS: BMI 24.8
--- NOTE | 2025-04-05 07:12 | XR_ITS ---
WS: [id number] XR lumbar spine 2-3V* [id number] REASON FOR EXAM: LUMBOSACRAL SPONDYLOSIS FINDINGS: Posterior decompression with pedicle screws and interconnecting rods L3-S1. Interbody fusion device at L5-S1. Surgical appliances are intact and in proper position and alignment unchanged compared to 07/24/2024. The remainder of the lumbar spine is unchanged with no acute or subacute abnormality. XR/XR lumbar spine 2-3V* [id number] IMPRESSION: Stable posterior lumbar fusion as above.
== END 2025-04-05 06:46 | disposition home or self-care (01) ==
PROVIDERS: PCP Family Medicine; Visit Provider Student in an Organized Health Care Education/Training Program
DX: M47.817 Spondylosis without myelopathy or radiculopathy, lumbosacral region (principal); Z96.89 Presence of other specified functional implants; M43.26 Fusion of spine, lumbar region
CPT/HCPCS: 72100

== ENCOUNTER → 2025-05-14 14:19 | Outpatient (BNVA) | payer MEDICARE, MEDICAID, SELFPAY ==
[2024-08-15 16:05] VITALS: BMI 24.8
== END ==
PROVIDERS: PCP Family Medicine; Visit Provider Orthopaedic Surgery
DX: M48.062 Spinal stenosis, lumbar region with neurogenic claudication (principal); Z98.1 Arthrodesis status; Z98.890 Other specified postprocedural states
CPT/HCPCS: 72100; 99213

== ENCOUNTER 2025-06-13 14:35 | Outpatient (CLI) | payer MEDICARE, MEDICAID, SELFPAY ==
[2024-08-15 16:05] VITALS: BMI 24.8
--- NOTE | 2025-06-13 14:40 | MR_ITS ---
WS: [id number] MRI LUMBAR SPINE NONCONTRAST TECHNIQUE: Sagittal T1, T2 and STIR imaging. Axial T1 and T2 imaging. CLINICAL INFORMATION: Low back pain COMPARISON: MRI 08/31/2024 FINDINGS: Mild lumbar curve. No acute compression. Pedicle screw fixation L3-S1. Interbody fusion L5-S1. L1-L2: Mild annular bulging. Small LEFT foraminal protrusion with mild LEFT foraminal narrowing. Slight narrowing LEFT subarticular recess. Moderate facet arthropathy. L2-L3: Mild annular bulging. LEFT facet synovial cyst extending to the midline is new compared to previous with impingement on the LEFT dorsal thecal sac with moderate central canal stenosis. Impingement on the traversing LEFT L3 nerve root. Moderate facet arthropathy. Mild LEFT foraminal narrowing. Synovial cyst measures 6 mm. L3-L4: Mild annular bulging. Mild LEFT bony foraminal narrowing. Moderate facet arthropathy. Spinal canal is patent. L4-L5: Mild annular bulging. Moderate facet arthropathy. Spinal canal and foramen are patent. L5-S1: Pedicle screw fixation with interbody fusion. Spinal canal and foramen are patent. Visualized pelvic bony structures: Normal. Paravertebral soft tissues: Normal. MR/MR lumbar spine wo con* [id number] IMPRESSION: 1. Mild lumbar curve. No acute compression. 2. New 6 mm synovial cyst LEFT L2-3 impinges the LEFT subarticular recess and traversing LEFT L3 nerve root. Moderate central canal stenosis. Moderate LEFT f oraminal narrowing at this level. 3. Small LEFT foraminal protrusion at L1-2 with mild LEFT foraminal narrowing appears slightly progressed 4. No other significant changes compared to previous.
== END 2025-06-13 14:36 | disposition home or self-care (01) ==
LOC: RAD 14:36
PROVIDERS: PCP Family Medicine; Visit Provider Orthopaedic Surgery
DX: Z98.890 Other specified postprocedural states (principal); M48.062 Spinal stenosis, lumbar region with neurogenic claudication; M41.86 Other forms of scoliosis, lumbar region; M71.38 Other bursal cyst, other site; M48.061 Spinal stenosis, lumbar region without neurogenic claudication; M51.26 Other intervertebral disc displacement, lumbar region; Z96.89 Presence of other specified functional implants
CPT/HCPCS: 72148